=== PATIENT | female | born 1965 | race Caucasian/White ===

== ENCOUNTER 2019-12-05 15:33 | Outpatient (CLI) | payer OTHER, SELFPAY ==
[2019-12-05 16:08] LABS: Add Urine Microscopic? YES; Appearance Urine Cloudy (Clear); Bilirubin Urine Negative (Negative); Blood Urine 2+ (Negative); Color Urine Yellow (Yellow); Glucose Urine UA Negative (Negative); Ketones Urine Negative (Negative); Leukocyte Esterase Ur 3+ LEU/UL (Negative); Mucus Urine Few /lpf; Nitrate Urine Negative (Negative); Protein Urine 1+ mg/dL (Negative); RBC Urine >75 /hpf (0-2); Specific Grav Ur 1.021 (1.001-1.035); Squamous Epithelial Cell Urine Many /hpf (Few); Urobilinogen Urine Negative mg/dL (<2.0); WBC Urine >75 /hpf
== END 2019-12-05 15:34 | disposition home or self-care (01) ==
PROVIDERS: Visit Provider Internal Medicine Hematology & Oncology
DX: C83.00 Small cell B-cell lymphoma, unspecified site (principal)
CPT/HCPCS: 81001; 87086; 87088

== ENCOUNTER 2020-02-12 10:46 | Outpatient (CLI) | payer OTHER, SELFPAY ==
--- NOTE | ~2020-02-12 | CT_ITS ---
EXAMINATION: CT chest w con DATE: 02/12/2020 12:17 INDICATION: Lymphoma TECHNIQUE: Computed tomography (CT) of the chest was performed with 75 cc Omnipaque 350 intravenous c ontrast. Automated exposure control and iterative reconstruction technique were employed. Exam dose: 136.05 mGy-cm total exam DLP. COMPARISON: 07/14/2019 CT chest abdomen pelvis FINDINGS: No thoracic aortic aneurysm or dissection. Normal heart size. No pericardial effusion. No h ilar or mediastinal mass lesion or lymphadenopathy. Normal size and homogeneous enhancement of the thyroid gland. Normal morphology of the adrenal glands. There are moderate emphysematous changes of the lungs. Mild bilateral apical scarring. No pulmonary i nfiltrate or consolidation or suspicious pulmonary mass lesion is evident. There is degenerative spurring of the thoracic spine. No suspicious osteolytic or osteoblastic lesion is noted. IMPRESSION: Emphysema. No lymphadenopathy demonstrated Reviewed, dictated and finalized at [facility]. Reviewed, dictated and finalized at location [facility].
== END 2020-02-12 10:47 | disposition home or self-care (01) ==
LOC: ANHIMG 10:54
PROVIDERS: PCP Internal Medicine Hematology & Oncology; Visit Provider Internal Medicine Hematology & Oncology
DX: C83.00 Small cell B-cell lymphoma, unspecified site (principal); J43.9 Emphysema, unspecified
CPT/HCPCS: 71260; Q9967

== ENCOUNTER 2020-04-30 02:33 | Emergency (ER) | payer OTHER, SELFPAY ==
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
--- NOTE | ~2020-04-30 | XR_ITS ---
XR chest-chest tube insert/pos DATE: 04/30/2020 04:28 INDICATION: Chest tube placement TECHNIQUE: Portable supine AP chest on 04/30/2020 at 0427 hours COMPARISON: 04/30/2020 CT chest abdomen pelvis FINDINGS: There is a right thoracostomy tube, the tip overlying the right apical area. There is reexp ansion of the right lung; no residual pneumothorax is evident. There is extensive subcutaneous emphys shirley of the right chest wall. Heart size is normal. No pleural effusion is evident. No pulmonary consolidation. IMPRESSION: Right thoracostomy tube; resolution right pneumothorax Subcutaneous emphysema right chest wall Reviewed, dictated and finalized at [facility]. Reviewed, dictated and finalized at [facility].
[2020-04-30 02:34] VITALS: BP 124/94; PULSE 104; RESP 22; TEMP 36.5; O2SAT 93
--- NOTE | 2020-04-30 02:42 | ECG_ITS ---
Measurements Intervals [place] Rate: 109 P: 263 HI: 186 QRS: -8 QRSD: 130 T: 99 QT: 405 QTc: 546 Interpretive Statements SINUS OR ECTOPIC ATRIAL TACHYCARDIA WITH FIRST DEGREE AV BLOCK LEFT BUNDLE BRANCH BLOCK BASELINE ARTIFACT- I, II, III, AVR, AVL, AVF, V3, V6 ABNORMAL ECG Electronically Signed On 04-30-2020 7:06:47 CDT by Arsalan Gage D.O.
[2020-04-30 02:56] LABS: Basophils Percent Auto 0.2 % (0.2-1.2); Eosinophils Absolute Auto 0.1 K/mm3 (0-0.3); Eosinophils Percent Auto 0.7 % (0-4.4); Hematocrit 38.3 % (37.0-47.0); Hemoglobin 12.9 g/dL (12.0-15.0); Immature Granulocyte Absolute 0.13 K/mm3 (0.00-0.031); Immature Granulocyte Percent A 0.8 % (0-0.5); Lymphocytes Absolute Auto 10.04 K/mm3 (0.9-3.2); Lymphocytes Percent Auto 61.6 % (18.3-44.2); Mean Corpuscular HGB Conc 33.7 g/dl (32-36); Mean Corpuscular Hemoglobin 31.8 pg (26-34); Mean Corpuscular Volume 94.3 fl (80-100); Monocytes Absolute Auto 0.8 K/mm3 (0.1-0.6); Monocytes Percent Auto 4.7 % (2.6-8.5); Neutrophils Absolute Auto 5.2 K/mm3 (1.3-6.7); Platelet Count Result 438 k/mm3 (150-375); Red Blood Count 4.06 M/mm3 (4.2-5.4); Red Cell Distribution Width 12.4 % (11.5-14.5); White Blood Count 16.3 K/mm3 (4.5-10.0)
[2020-04-30] MEDS: SODIUM CHLORIDE 0.9% IV 1,000 ML 999 ML IV CONT (02:59)
[2020-04-30 03:09] LABS: Partial Thromboplastin Time 23.9 SECONDS (22.3-36.8)
[2020-04-30 03:12] LABS: Alanine Aminotransferase 260 U/L (4-35); Albumin Level 4.5 g/dL (3.5-5.1); Alkaline Phosphatase 118 U/L (38-126); Anion Gap 8 mmol/L (8-16); Aspartate Amino Transferase 433 U/L (14-36); Bilirubin,Total 0.3 mg/dL (0.2-1.3); Blood Urea Nitrogen 17 mg/dL (7-17); Calcium 9.8 mg/dL (8.4-10.2); Carbon Dioxide 30 mmol/L (22-30); Chloride 104 mmol/L (98-107); Estimated CRCL calculation 44 ml/min; Estimated Glomerular Filt Rate 47; Glucose 148 mg/dL (65-105); Lipase 84 U/L (23-300); Potassium 3.7 mmol/L (3.4-5.0); Sodium 142 mmol/L (137-145)
[2020-04-30 03:17] LABS: Ethanol < 10 mg/dL (<10)
[2020-04-30 03:22] LABS: Atypical Lymphocytes Present; Platelet Estimate Adequate (Adequate)
[2020-04-30] MEDS: fentaNYL CITRATE INJ (*CRX) 100 MCG/2 ML VIAL 50 MCG IV PUSH ×3 (03:25→04:48)
[2020-04-30 03:26] LABS: Prothrombin Time 13.2 Seconds (11.1-14.7)
[2020-04-30 03:31] LABS: Troponin I 0.026 ng/mL (0.000-0.034)
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
[2020-04-30] MEDS: MIDAZOLAM HCL (*CRX) 2 MG/2 ML VIAL IV PUSH ×2 (04:07→04:28)
[2020-04-30 04:31] VITALS: BP 165/77; PULSE 99; RESP 27; O2SAT 100
--- NOTE | 2020-04-30 04:41 | PC.NURSE ---
called awilda to trasfer patient to [facility] ED. Awilda is coming with lights and randal
[2020-04-30 04:49] VITALS: BP 136/85; PULSE 94; RESP 25; O2SAT 99
[2020-04-30 05:12] VITALS: BP 141/83; PULSE 95; RESP 24; O2SAT 98
== END 2020-04-30 05:37 | disposition short-term general hospital (02) ==
PROVIDERS: Emergency Provider Emergency Medicine
DX: S27.0XXA Traumatic pneumothorax, initial encounter (principal); S22.41XA Multiple fractures of ribs, right side, initial encounter for closed fracture; S01.512A Laceration without foreign body of oral cavity, initial encounter; I44.7 Left bundle-branch block, unspecified; T79.7XXA Traumatic subcutaneous emphysema, initial encounter; F17.210 Nicotine dependence, cigarettes, uncomplicated; E78.5 Hyperlipidemia, unspecified; I10 Essential (primary) hypertension; E03.9 Hypothyroidism, unspecified; G62.9 Polyneuropathy, unspecified; I44.0 Atrioventricular block, first degree; R00.0 Tachycardia, unspecified; M50.322 Other cervical disc degeneration at C5-C6 level; N28.1 Cyst of kidney, acquired; V47.5XXA Car driver injured in collision with fixed or stationary object in traffic accident, initial encounter
CPT/HCPCS: 32551; 36415; 70450; 71260; 72125; 74177; 80053; 80307; 82565; 83690; 84484; 85025; 85610; 85730; 93005; 96361; 96374; 96375; 96376; 99291; C1729; J2250; J3010; J7030; Q9967

== ENCOUNTER 2021-02-20 12:39 | Emergency (ER) | payer OTHER, SELFPAY ==
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
[2021-02-20 12:58] VITALS: BP 135/90; PULSE 100; RESP 18; TEMP 37.4; O2SAT 98
== END 2021-02-20 14:21 | disposition home or self-care (01) ==
PROVIDERS: Emergency Provider Nurse Practitioner
DX: M25.512 Pain in left shoulder (principal); S13.9XXA Sprain of joints and ligaments of unspecified parts of neck, initial encounter; V49.40XA Driver injured in collision with unspecified motor vehicles in traffic accident, initial encounter; E78.5 Hyperlipidemia, unspecified; I10 Essential (primary) hypertension; E03.9 Hypothyroidism, unspecified; G62.9 Polyneuropathy, unspecified
CPT/HCPCS: 73000; 99213; G0463

== ENCOUNTER 2021-05-02 13:33 | Emergency (ER) | payer OTHER, SELFPAY ==
[2021-05-02 13:37] VITALS: BP 147/91; PULSE 108; RESP 20; TEMP 36.3; O2SAT 98
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
--- NOTE | 2021-05-02 13:48 | ECG_ITS ---
Measurements Intervals [place] Rate: 96 P: 75 CT: 165 QRS: -31 QRSD: 118 T: 106 QT: 370 QTc: 470 Interpretive Statements SINUS RHYTHM POSSIBLE LEFT ATRIAL ENLARGEMENT LEFT AXIS DEVIATION LEFT BUNDLE BRANCH BLOCK ANTEROSEPTAL INFARCT OR DUE TO LBBB BASELINE ARTIFACT- V4-V6 ABNORMAL ECG Electronically Signed On 05-02-2021 14:25:14 CDT by Arsalan Gage D.O.
[2021-05-02] MEDS: ALBUTEROL SULFATE NEB 2.5 MG/0.5 ML INH 5 MG INHALATION (14:05)
[2021-05-02 14:07] VITALS: PULSE 98; RESP 20; O2SAT 98
[2021-05-02 14:35] VITALS: PULSE 105; RESP 20; O2SAT 97
== END 2021-05-02 14:50 | disposition short-term general hospital (02) ==
PROVIDERS: Emergency Provider Emergency Medicine; PCP Pediatrics
DX: R06.02 Shortness of breath (principal); F19.90 Other psychoactive substance use, unspecified, uncomplicated; Z20.822 Contact with and (suspected) exposure to COVID-19; F17.290 Nicotine dependence, other tobacco product, uncomplicated; E78.5 Hyperlipidemia, unspecified; I10 Essential (primary) hypertension; E03.9 Hypothyroidism, unspecified; G62.9 Polyneuropathy, unspecified; C85.90 Non-Hodgkin lymphoma, unspecified, unspecified site
CPT/HCPCS: 87426; 93005; 94640; 99213; C9803; G0463

== ENCOUNTER 2021-05-02 19:11 | Emergency (ER) | payer OTHER, SELFPAY ==
--- NOTE | ~2021-05-02 | XR_ITS ---
XR chest 2V DATE: 05/02/2021 20:30 INDICATION: Shortness of breath, increasing. Chest tightness, chest pain radiating to the back. COPD. Cancer. TECHNIQUE: PA and lateral views COMPARISON: 04/30/2020 portable AP chest FINDINGS: Bilateral hyperinflation and relative flattening the diaphragm, consistent with COPD. No pu lmonary infiltrate or consolidation, pleural effusion or pulmonary vascular congestion or pneumothora x. Heart size is within normal range. No hilar or mediastinal enlargement. IMPRESSION: Bilateral hyperinflation suggesting COPD No active cardiopulmonary disease Reviewed, dictated and finalized at location A.
[2021-05-02 19:37] VITALS: BP 143/103; PULSE 108; RESP 20; TEMP 37.1; O2SAT 97
--- NOTE | 2021-05-02 20:20 | ECG_ITS ---
Measurements Intervals [place] Rate: 91 P: 15 NE: 141 QRS: -52 QRSD: 130 T: 115 QT: 402 QTc: 496 Interpretive Statements SINUS RHYTHM LEFT AXIS DEVIATION LEFT BUNDLE BRANCH BLOCK BASELINE ARTIFACT- I, II, III, AVR, AVF, V2-V6 ABNORMAL ECG Electronically Signed On 05-03-2021 6:12:07 CDT by Arsalan Gage D.O.
--- NOTE | 2021-05-02 20:49 | ED.SOB ---
HPI - SOB/Dyspnea General Chief Complaint: Shortness of Breath/Dyspnea Stated Complaint: sob since sunday, seen at [facility] Time Seen by Provider: 05/02/21 20:32 Source: patient, RN notes reviewed and old records reviewed Mode of arrival: ambulatory Limitations: no limitations History of Present Illness HPI Narrative: This is a 55 year old female with history leukemia ,COPD, smoking , pneumothorax who presents for evaluation of shortness of breath. She started having sob on Sunday. Initially she was short of breath only with exertion but she now feels sob at rest. She is also having intermittent back and chest tightness with nausea. She has chronic cough with phlegm. She denies fever or chills. she denies leg swelling but she reports leg pain and fatigue. She was evaluated at [facility] and she was given neb treatment without relief. Related Data Home Medications Medication Instructions Recorded Confirmed No Home Medications 05/02/21 05/02/21 Allergies Allergy/AdvReac Type Severity Reaction Status Date / Time codeine Allergy Mild Nausea and Verified 05/02/21 13:35 Vomiting Review of Systems Review of Systems: All systems reviewed & are unremarkable except as noted in HPI and below PMFSH Past Medical History Medical History Anxiety Bulging of cervical intervertebral disc DDD (degenerative disc disease) Depression HLD (hyperlipidemia) Hypertension Hypothyroid Peripheral neuropathy Pneumonia Surgical History Surgical History H/O section x2 S/P breast biopsy Social History Social History (System 09/04/19 @ 12:57 by Stacey Celaya) Smoking status: Current every day smoker Tobacco type: cigarettes and e-cigarettes/vaping Substance use: former Substance use type: crack/cocaine Exam Const: General: no acute distress and alert Orientation/consciousness: patient oriented x3 Eyes: EOM: EOMs intact bilaterally Resp: Effort & Inspection: normal respiratory effort and no retractions Auscultation: clear to auscultation bilaterally and diminished lung sounds Cardio: Rate: regular rate Rhythm: regular rhythm Heart sounds: no murmurs GI: GI Palp: Yes Soft to palpation, No Tenderness to palpation present (GI) and No Guarding due to palpation present (GI) Auscultation: normal bowel sounds Skin: General skin exam: normal color Rashes: no rashes Neuro: General: patient oriented x3, moves all extremities and CN's II-XI intact bilaterally Psych: Mental Status: mental status grossly normal Affect: normal affect Course Reevaluation(s) Reevaluation #1: Patient left AMA. Prior to leaving I discussed with patient lab and pending orders of lasix, steroids and CT lungs. SHe still refuses and signing AMA Date: 05/02/21 Time: 22:00 Vital Signs Vital signs: Vital Signs Temperature 98.8 F 05/02/21 19:37 Pulse Rate 108 H 05/02/21 19:37 Respiratory Rate 20 05/02/21 19:37 Blood Pressure 143/103 H 05/02/21 19:37 Pulse Oximetry 97 05/02/21 19:37 Temperature 98.8 F 05/02/21 19:37 Pulse Rate 88 05/02/21 21:37 Respiratory Rate 22 H 05/02/21 21:37 Blood Pressure 141/99 H 05/02/21 21:37 Pulse Oximetry 98 05/02/21 21:37 MDM - SOB/Dyspnea Lab Data Attestation: I reviewed the patient's lab results. Result diagrams: 05/02/21 21:15 05/02/21 21:15 Labs: Lab Results 05/02/21 05/02/21 05/02/21 Range/Units 20:51 21:13 21:15 WBC 21.1 H (4.5-10.0) K/mm3 RBC 4.33 (4.2-5.4) M/mm3 Hgb 13.8 (12.0-15.0) g/dL Hct 40.7 (37.0-47.0) % MCV 94.0 (80-100) fl MCH 31.9 (26-34) pg MCHC 33.9 (32-36) g/dl RDW 11.9 (11.5-14.5) % Plt Count 385 H (150-375) k/mm3 MPV 8.7 (7.4-10.4) fl Immature Gran % (Auto) 0.2 (0-0.5) % Neut % (Auto) 29.1 L (45.5-73.1)
[2021-05-02 21:00] LABS: Alveolar/Arterial O2 Gradient 41.3 mmHg; Base Excess ABG 1.3 mEq/l (+/-2.0); Carboxyhemoglobin 2.1 % THb (0-2.0); Fractional Inspired Oxygen 21 %; HCO3 ABG 23.8 mEq/l (22.0-26.0); Methemoglobin ABG 0.3 %THb (0-1.5); Modified Allen's Test Pass; Oxygen Content ABG 17.8 %vol (16.0-22.0); Oxygen Saturation ABG 95.4 % (95.0-100.0); Oxyhemoglobin 88.3 % THb (90.0-100.0); PO2 ABG 70.1 mmHg (80.0-100.0); PO2 FiO2 Ratio Arterial Blood 3.34 %; Reduced Hemoglobin 9.3 %THb (0-5.0); Site Drawn RIGHT RADIAL; Total Hemoglobin 14.3 g/dL (12.0-18.0)
[2021-05-02 21:01] LABS: Device ROOM AIR
[2021-05-02] MEDS: predniSONE 20 MG TABLET 60 MG PO (21:03)
[2021-05-02 21:24] LABS: Basophils Absolute Auto 0.1 K/mm3 (0.0-0.1); Basophils Percent Auto 0.3 % (0.2-1.2); Eosinophils Absolute Auto 0.2 K/mm3 (0-0.3); Eosinophils Percent Auto 1.1 % (0-4.4); Hematocrit 40.7 % (37.0-47.0); Hemoglobin 13.8 g/dL (12.0-15.0); Immature Granulocyte Absolute 0.05 K/mm3 (0.00-0.031); Immature Granulocyte Percent A 0.2 % (0-0.5); Lymphocytes Absolute Auto 13.92 K/mm3 (0.9-3.2); Lymphocytes Percent Auto 65.8 % (18.3-44.2); Mean Corpuscular HGB Conc 33.9 g/dl (32-36); Mean Corpuscular Hemoglobin 31.9 pg (26-34); Mean Platelet Volume 8.7 fl (7.4-10.4); Monocytes Absolute Auto 0.8 K/mm3 (0.1-0.6); Monocytes Percent Auto 3.5 % (2.6-8.5); Neutrophils Absolute Auto 6.1 K/mm3 (1.3-6.7); Neutrophils Percent Auto 29.1 % (45.5-73.1); Platelet Count Result 385 k/mm3 (150-375); Red Blood Count 4.33 M/mm3 (4.2-5.4); Red Cell Distribution Width 11.9 % (11.5-14.5); White Blood Count 21.1 K/mm3 (4.5-10.0)
[2021-05-02 21:36] LABS: INR 0.9; Prothrombin Time 11.9 Seconds (11.1-14.7)
[2021-05-02 21:37] VITALS: BP 141/99; PULSE 88; RESP 22; O2SAT 98
[2021-05-02 21:37] LABS: Partial Thromboplastin Time 23.5 SECONDS (22.3-36.8)
[2021-05-02 21:38] LABS: Smudge Cells FEW
[2021-05-02 21:39] LABS: Atypical Lymphocytes Present; Platelet Estimate Increased (Adequate)
[2021-05-02 21:40] LABS: Anion Gap 9 mmol/L (8-16); Blood Urea Nitrogen 10 mg/dL (7-17); Calcium 10.6 mg/dL (8.4-10.2); Carbon Dioxide 25 mmol/L (22-30); Chloride 106 mmol/L (98-107); Estimated CRCL calculation 60 ml/min; Estimated Glomerular Filt Rate > 60; Glucose 121 mg/dL (65-110); Potassium 4.1 mmol/L (3.4-5.0); Sodium 140 mmol/L (137-145)
[2021-05-02 21:46] LABS: Barbiturate Screen Urine Negative (Negative); Benzodiazepines Screen Urine Negative (Negative)
[2021-05-02 21:50] LABS: Cannabinoid Screen Urine Positive (Negative); Cocaine Screen Urine Negative (Negative); Methadone Screen Urine Negative (Negative); Opiate Screen Urine Negative (Negative); Phencyclidine Screen Urine Negative (Negative)
[2021-05-02 21:52] LABS: D Dimer 0.27 ug/mL (<0.48)
[2021-05-02 21:53] LABS: NT Pro B Type Natriuretic Pept 2040 pg/mL (5-100); Troponin I 0.031 ng/mL (0.000-0.034)
--- NOTE | 2021-05-02 22:13 | PC.NURSE ---
Pt refuses medication and demands to leave at this time. States i have not ate all day, I just want to go, take this IV out of me now . ERP and Charge nurse aware . IV removed. AMA paper signed.
[2021-05-02 22:22] LABS: Amphetamine Screen Urine Positive (Negative)
== END 2021-05-02 22:15 | disposition left against medical advice (07) ==
LOC: ANHED 20:47
PROVIDERS: Emergency Provider General Practice
DX: J44.1 Chronic obstructive pulmonary disease with (acute) exacerbation (principal); E03.9 Hypothyroidism, unspecified; E78.5 Hyperlipidemia, unspecified; G62.9 Polyneuropathy, unspecified; Z85.6 Personal history of leukemia; F17.210 Nicotine dependence, cigarettes, uncomplicated; F17.290 Nicotine dependence, other tobacco product, uncomplicated; I44.7 Left bundle-branch block, unspecified
CPT/HCPCS: 36415; 36600; 71046; 80048; 80307; 82375; 82805; 83050; 83880; 84484; 85025; 85380; 85610; 85730; 87426; 93005; 94640; 99284; C9803; J7512

== ENCOUNTER 2021-06-02 13:54 | Emergency (ER) | payer OTHER, SELFPAY ==
--- NOTE | ~2021-06-02 | XR_ITS ---
XR chest 2V 06/02/2021 14:40 Indication: Cough and shortness of breath Procedure: 2 view chest Comparison: Comparison to multiple prior studies sequentially, with oldest reviewed study dated 09/15. Findings: Borderline heart size. There are infiltrates of the lower lungs and left midlung. Small ple ural effusions. The lungs are hyperinflated which is consistent with, but not diagnostic of chronic o bstructive pulmonary disease. Impression: 1: Bibasilar infiltrates which may represent atelectasis or less likely pneumonia. 2: Small pleural effusions. Reviewed, dictated and finalized at location B. NICAL PRODUCER Impression: 1: Bibasilar infiltrates which may represent atelectasis or less likely pneumon ia. 2: Small pleural effusions.
[2021-06-02 13:58] VITALS: BP 138/94; PULSE 123; RESP 26; TEMP 37.7; O2SAT 95
--- NOTE | 2021-06-02 14:13 | ED.URI ---
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 She has a shorter half week recurrent history of shortness of breath, and nonproductive cough.Patient states seen in the ED last month for for similar symptoms WBC remarkable for 21,000 with right shift, BNP 1999 and treated for COPD exacerbation with inhaler, steroid[ no antibiotics] after noncontributory Xray. She has a recent history of stable CLL, LBBB, and a traumatic pneumothorax a year ago. No loss of taste/smell, CP, vomiting/diarrhea, rash;no fever, precordial chest pain, calf pain/edema, sputum changes. Chest x-ray shows new bibasilar changes consistent with atelectasis [or infiltrates ]; she declines today hospital referral - discussed also plan to call oncologist, as she is due for her biannual exam. Related Data Allergies Allergy/AdvReac Type Severity Reaction Status Date / Time codeine Allergy Mild Nausea and Verified 06/02/21 14:08 Vomiting Review of Systems Review of Systems: General/Constitutional: No weight loss,fever Eyes: N0: Redness,discharge Ears/Nose/Throat: No: Epistaxis,ear discharge Respiratory: Denies: Hemoptysis Gastrointestinal: No Vomiting, Bleeding-rectal Skin: No Lumps, eruption Neurologic: No Focal Weakness,Sz Hematologic: Denies: Petechiae/Purpura Psychiatric: No: Suicida ideationl All Other Systems: Reviewed and Negative PMFSH Past Medical History Medical History Anxiety Bulging of cervical intervertebral disc DDD (degenerative disc disease) Depression HLD (hyperlipidemia) Hypertension Hypothyroid Peripheral neuropathy Pneumonia Surgical History Surgical History H/O section x2 S/P breast biopsy Social History Social History (System 09/04/19 @ 12:57 by Stacey Celaya) Smoking status: Current every day smoker Tobacco type: cigarettes and e-cigarettes/vaping Substance use: former Substance use type: crack/cocaine Comments At time of signature, agree with nursing past medical, surgical, social and family history. There is no relevant family history pertinent to the presenting complaint Exam Narrative: General Appearance: Well appearing, Well nourished EYE: PERRLA, Conjunctiva clear Ears: Auditory canal normal, TM normal Nose: Rhinorrhea, Mucousal erythema Mouth/Throat: MM moist, Uvula midline, Pharyngeal erythema Neck: Supple, No adenopathy Respiratory: No respiratory distress, BS equal diffuse decreased BS gio bases, with increased AP diameter , Cardiovascular: Tacky RRR, No JVD Musculoskeletal: Non tender, Normal strength Skin: Warm, Dry Neurological: A&O x3, CN II-XII intact Psychiatric: Normal mood, Normal affect Course Course Emergency Course: Films visualized, interpreted by radiologist, agree, ABnormal see report Called and discussed treatment plan with oncologist, who prefers Levaquin Vital Signs Vital signs: Vital Signs Temperature 99.9 F H 06/02/21 13:58 Pulse Rate 123 H 06/02/21 13:58 Respiratory Rate 26 H 06/02/21 13:58 Blood Pressure 138/94 H 06/02/21 13:58 Pulse Oximetry 95 06/02/21 13:58 Temperature 99.9 F H 06/02/21 13:58 Pulse Rate 123 H 06/02/21 13:58 Respiratory Rate 26 H 06/02/21 13:58 Blood Pressure 138/94 H 06/02/21 13:58 Pulse Oximetry 95 06/02/21 13:58 MDM - URI/Sore Throat Lab Data Labs: Lab Results 06/02/21 06/02/21 Range/Units 14:05 15:46 SARS-CoV-2 RNA (RT-PCR) Pending POC SARS CoV-2 Ag Negative (Negative) Discharge Plan Discharge Clinical Impression: Abnormal chest x-ray, Asthma exacerba
[2021-06-02] MEDS: IPRATROPIUM BR 0.02% INH SOLN 0.5 MG/2.5 ML VIAL INHALATION (15:10)
[2021-06-02] MEDS: ALBUTEROL SULFATE NEB 2.5 MG/0.5 ML INH INHALATION (15:18)
[2021-06-03 17:54] LABS: SARS-CoV-2 RNA PCR Negative
== END 2021-06-02 15:52 | disposition home or self-care (01) ==
PROVIDERS: Emergency Provider Emergency Medicine
DX: J44.1 Chronic obstructive pulmonary disease with (acute) exacerbation (principal); R91.8 Other nonspecific abnormal finding of lung field; E78.5 Hyperlipidemia, unspecified; I10 Essential (primary) hypertension; E03.9 Hypothyroidism, unspecified; F17.200 Nicotine dependence, unspecified, uncomplicated; Z20.822 Contact with and (suspected) exposure to COVID-19
CPT/HCPCS: 71046; 87426; 99213; C9803; G0463; U0003; U0005

== ENCOUNTER 2021-07-10 17:18 | Emergency (ER) | payer OTHER, SELFPAY ==
[2021-07-10 17:25] VITALS: BP 110/77; PULSE 110; RESP 20; TEMP 36.4; O2SAT 99
--- NOTE | 2021-07-10 19:51 | PC.NURSE ---
no answer when called
== END 2021-07-10 19:53 | disposition left against medical advice (07) ==
LOC: ANHED 20:02
DX: J02.9 Acute pharyngitis, unspecified (principal)
CPT/HCPCS: 99199

== ENCOUNTER 2021-08-09 10:44 | Inpatient (IN) | payer OTHER, SELFPAY ==
[2021-08-09] VITALS (10 sets, daily range): BP systolic 103–126; BP diastolic 68–84; PULSE 109–123; RESP 14–28; TEMP 36.4–36.7; O2SAT 94–98; BMI 26.4
--- NOTE | 2021-08-09 | ECHO_ITS ---
Patient Info Name: Erik Brenner Age: 56 years : 1965 Gender: Female Ht: 61 in Wt: 140 lbs BSA: 1.67 m2 HR: 240 bpm BP: 107 / 72 mmHg Heart Rhythm: Tachycardia Technical Quality: Fair Exam Date: 08/09/2021 4:33 PM Exam Location: [facility] Patient Status: Inpatient Admit Date: 08/09/2021 Staff Ordering Physician: Jazzy Freire Tree Girdler: Radha Bailey RDCS Attending Provider: Martha Izaguirre MD Referring Physician: Mouna GOMEZ; Exam Type: CA echo dop color flow w con Study Info Indications - chf Complete two-dimensional, color flow and Doppler transthoracic echocardiogram is performed. Summary 1. Complete two-dimensional, color flow and Doppler transthoracic echocardiogram is performed. 2. Left ventricular chamber dimension is severely enlarged. 3. Left ventricular systolic function is severely reduced, estimated at <15%. 4. There is no increased left ventricular wall thickness. 5. Left ventricular septal wall motion is abnormal with septal motion related to bundle branch block. 6. The left ventricular diastolic function is abnormal. 7. The inferior wall, anteroseptal wall, apical lateral wall, and apical cap are akinetic. 8. The mid anterior wall, mid anterolateral wall, and mid inferolateral wall are hypokinetic. 9. The inferoseptal wall is dyskinetic. 10. Right ventricular chamber dimension is mildly enlarged. 11. Right ventricular systolic function is reduced. 12. Left atrial chamber dimension is mildly enlarged. 13. Right atrial chamber dimension is mildly enlarged. 14. There is mild aortic valve regurgitation. 15. There is moderate mitral valve regurgitation. 16. There is moderate tricuspid valve regurgitation. 17. Moderate pulmonary hypertension, estimated pulmonary arterial systolic pressure is 49 mmHg. 18. There is mild pulmonic regurgitation. 19. There is small pericardial effusion. Left Ventricle Left ventricular chamber dimension is severely enlarged. Left ventricular systolic function is severely reduced, estimated at <15%. There is no increased left ventricular wall thickness. Left ventricular septal wall motion is abnormal with septal motion related to bundle branch block. The left ventricular diastolic function is abnormal. The inferior wall, anteroseptal wall, apical lateral wall, and apical cap are akinetic. The mid anterior wall, mid anterolateral wall, and mid inferolateral wall are hypokinetic. The inferoseptal wall is dyskinetic. All other ho appear normal. Right Ventricle Right ventricular chamber dimension is mildly enlarged. Right ventricular systolic function is reduced. Left Atria Left atrial chamber dimension is mildly enlarged. Right Atria Right atrial chamber dimension is mildly enlarged. Atrial Septum Intact interatrial septum visualized by color flow imaging. Aortic Valve The aortic valve is trileaflet. There is mild aortic valve sclerosis. There is no aortic valve stenosis. There is mild aortic valve regurgitation. Pulmonic Valve The pulmonic valve is normal. There is no pulmonic valve stenosis. There is mild pulmonic regurgitation. Mitral Valve The mitral valve has normal leaflets. There is no mitral valve stenosis. There is moderate mitral valve regurgitation. Tricuspid Valve The tricuspid valve leaflets are normal. There is no significant tricuspid valve stenosis. There is moderate tricuspid valve regurgitation. Moderate pulmonary hypertension
--- NOTE | ~2021-08-09 | CT_ITS ---
EXAMINATION: CTA chest PE protocol DATE: 08/09/2021 12:03 INDICATION: Soreness of breath. Elevated d-dimer. TECHNIQUE: Computed tomography (CT) pulmonary angiogram of the chest was performed with 100 mL Omnipa que-350 intravenous contrast. Additional 3D reconstructions utilizing coronal maximum intensity proje ction (MIP) were performed. Automated exposure control and iterative reconstruction technique were em ployed. The dose-length product was 219.49 mGy-cm. COMPARISON: 04/30/2020 FINDINGS: Excellent contrast opacification of the pulmonary arteries. There is mild streak artifact from dense contrast in the superior vena cava and right atrium. Minimal respiratory motion which does not signif icantly limit evaluation. No pulmonary embolism. Mild to moderate emphysema. Subtle groundglass opaci ties and smooth septal line thickening with lower lung predominance consistent with mild pulmonary ed shirley. Mild lingular atelectasis. No pleural effusion or pneumothorax. Cardiomegaly. No pericardial eff usion. Mild mediastinal and right hilar lymphadenopathy which is likely reactive. Thoracic aorta is n ormal in caliber. Mild to moderate thoracic and lower cervical spondylosis. IMPRESSION: 1. Likely congestive heart failure with cardiomegaly and mild basilar predominant pulmonary edema. 2. Mild to moderate emphysema. Reviewed, dictated and finalized at location A. OLITH OPERATOR IMPRESSION: 1. Likely congestive heart failure with cardiomegaly and mild basilar predomina nt pulmonary edema. 2. Mild to moderate emphysema.
--- NOTE | ~2021-08-09 | XR_ITS ---
EXAMINATION: XR chest 2V DATE: 08/09/2021 11:57 INDICATION: Cough and chest pain TECHNIQUE: PA and lateral views of the chest were obtained. COMPARISON: Chest radiograph dated 06/02/2021 FINDINGS: Mild increased interstitial pattern in the bilateral lower lung zones consistent with mild pulmonary edema. No pleural effusion or pneumothorax. Cardiomegaly. Mild thoracic levocurvature with moderate s pondylosis. IMPRESSION: 1. Mild pulmonary edema in the lower lung zones 2. Cardiomegaly. Reviewed, dictated and finalized at location A. LE GIRL
--- NOTE | ~2021-08-09 | US_ITS ---
EXAMINATION: US abdomen limited DATE: 08/10/2021 08:01 INDICATION: Elevated liver function tests TECHNIQUE: Multiple grayscale and Doppler ultrasound images of the abdomen were obtained. COMPARISON: 04/30/2020 FINDINGS: The pancreatic head and body are normal in appearance. The visualized proximal inferior vena cava is normal. The pancreatic tail is not visualized. Liver has normal echogenicity and contour, with a smoo th surface. No liver lesion identified. No intrahepatic biliary duct dilation suspected. Portal venou s flow was seen in the hepatopetal, normal direction and has normal Doppler waveform. The gallbladder is normal in appearance. There is no cholelithiasis. The common bile duct measures 3-4 mm, which is normal. Sonographic Cornell sign was reported as negative by the pallet repairer. IMPRESSION: 1. Normal right upper quadrant ultrasound. Reviewed, dictated and finalized at location A. [facility]
--- NOTE | 2021-08-09 10:49 | ECG_ITS ---
Measurements Intervals [place] Rate: 123 P: 57 [place]: 156 QRS: -11 QRSD: 142 T: 70 QT: 359 QTc: 515 Interpretive Statements SINUS TACHYCARDIA LEFT BUNDLE BRANCH BLOCK BASELINE ARTIFACT- I, II, III, AVR, AVL, AVF, V3-V6 ABNORMAL ECG Electronically Signed On 08-09-2021 12:19:23 MAINFRAME CONSULTANT by Arsalan Gage D.O.
--- NOTE | 2021-08-09 11:05 | ED.SOB ---
HPI - SOB/Dyspnea General Chief Complaint: Shortness of Breath/Dyspnea Stated Complaint: sob Time Seen by Provider: 08/09/21 10:50 Source: patient Mode of arrival: ambulatory Limitations: no limitations History of Present Illness HPI Narrative: Patient is a 56-year-old female complain of shortness of breath that is been ongoing for 1 month, was sent here by her floral clerk for possible acute CHF . Patient denies any chest pain, abdominal pain, abdominal distention, nausea, vomiting, diaphoresis, fever, chills or increased lower extremity swelling. Related Data Allergies Allergy/AdvReac Type Severity Reaction Status Date / Time codeine Allergy Mild Nausea and Verified 08/09/21 10:55 Vomiting Review of Systems Review of Systems: All systems reviewed & are unremarkable except as noted in HPI and below Constitutional: Constitutional: Denies body ache(s), Denies chills, Denies excessive sweating, Denies fatigue, Denies fever(s), Denies headache(s), Denies lethargy, Denies malaise, Denies weakness and Denies weight loss Eyes: Eyes: Denies blurry vision, Denies change in vision and Denies loss of vision ENT: Denies dizziness, Denies ear discharge, Denies headache(s), Denies lip swelling, Denies epistaxis, Denies nasal congestion, Denies neck pain, Denies throat swelling and Denies tongue swelling Cardiovascular: Cardiovascular: Denies chest pain, Denies chest pain at rest, Denies chest pain with activity, Denies diaphoresis, Denies rapid heart rate, Denies edema, Denies irregular heart rhythm, Denies lightheadedness and Denies palpitations Respiratory: Respiratory: Denies chest congestion, Denies cough and Denies hemoptysis Gastrointestinal: Gastrointestinal: Denies abdominal pain, Denies melena, Denies hematochezia, Denies diarrhea, Denies nausea, Denies vomiting and Denies hematemesis Musculoskeletal: Musculoskeletal: Denies abnormal gait, Denies deformity, Denies joint swelling, Denies limited range of motion, Denies neck pain and Denies numbness Neurologic: Denies Abnormal speech present, Denies abnormal gait, Denies confusion, Denies dizziness, Denies headache(s), Denies focal weakness, Denies loss of vision, Denies numbness, Denies Other visual disturbances, Denies Sensory deficit (Neuro) and Denies weakness Psychiatric: Psychiatric: Denies confusion, Denies depression, Denies auditory hallucinations, Denies homicidal ideation and Denies suicidal ideation Endocrine: Endocrine: Denies cold intolerance, Denies excessive sweating, Denies fatigue, Denies heat intolerance and Denies palpitations Hematologic/Lymphatic: Hematologic/Lymphatic: Denies easy bleeding and Denies easy bruising Allergic/Immunologic: Allergic/Immunologic: Denies lip swelling, Denies throat swelling and Denies tongue swelling PMFSH Past Medical History Medical History Anxiety Bulging of cervical intervertebral disc DDD (degenerative disc disease) Depression HLD (hyperlipidemia) Hypertension Hypothyroid Peripheral neuropathy Pneumonia Surgical History Surgical History H/O section x2 S/P breast biopsy Social History Social History Smoking packs per day: 1 Smoking cigarettes per day: 20.0 Years smoked: 40 Smoking pack-years: 40.00 Smoking status: Current every day smoker Tobacco type: cigarettes and e-cigarettes/vaping Substance use: former Substance use type: crack/cocaine Exam Const: General: cooperative, healthy appearing, comfortable, no acute distress, well developed, alert and awake; No confusion Orientation/consciousness: oriented to person, oriented to place, oriented to time, patient oriented x3 and No confusion Limitations: no limitations HENMT: Head: normal to inspection, normocephalic and atraumatic Ears: hearing grossly normal bilatera
[2021-08-09] MEDS: IPRATROPIUM BR 0.02% INH SOLN 0.5 MG/2.5 ML VIAL INHALATION (11:20)
[2021-08-09] MEDS: ALBUTEROL SULFATE NEB 2.5 MG/0.5 ML INH 5 MG INHALATION (11:20)
[2021-08-09 11:24] LABS: Alveolar/Arterial O2 Gradient 51.7 mmHg; Carboxyhemoglobin 3.1 % THb (0-2.0); Fractional Inspired Oxygen 21 %; HCO3 ABG 22.5 mEq/l (22.0-26.0); Methemoglobin ABG 0.1 %THb (0-1.5); Oxygen Content ABG 17.1 %vol (16.0-22.0); Oxygen Saturation ABG 93.5 % (95.0-100.0); PCO2 ABG 30.5 mmHg (35.0-45.0); PO2 ABG 61.5 mmHg (80.0-100.0); PO2 FiO2 Ratio Arterial Blood 2.93 %; Reduced Hemoglobin 7.8 %THb (0-5.0); Total Hemoglobin 13.7 g/dL (12.0-18.0); pH ABG 7.485 (7.350-7.450)
[2021-08-09 11:25] LABS: Device ROOM AIR; Modified Allen's Test Pass; Site Drawn RIGHT RADIAL
[2021-08-09 11:26] LABS: Alanine Aminotransferase 139 U/L (4-35); Albumin Level 4.2 g/dL (3.5-5.1); Alkaline Phosphatase 117 U/L (38-126); Anion Gap 9 mmol/L (8-16); Aspartate Amino Transferase 155 U/L (14-36); Blood Urea Nitrogen 11 mg/dL (7-17); Calcium 9.9 mg/dL (8.4-10.2); Carbon Dioxide 21 mmol/L (22-30); Chloride 100 mmol/L (98-107); D Dimer 0.94 ug/mL (<0.48); Estimated CRCL calculation 59 ml/min; Estimated Glomerular Filt Rate > 60; Glucose 185 mg/dL (65-110); Potassium 3.8 mmol/L (3.4-5.0); Sodium 130 mmol/L (137-145)
[2021-08-09 11:29] LABS: INR 1.1
[2021-08-09 11:32] LABS: NT Pro B Type Natriuretic Pept 4900 pg/mL (5-100)
[2021-08-09 11:44] LABS: Troponin I 0.026 ng/mL (0.000-0.034)
[2021-08-09] MEDS: FUROSEMIDE INJ 40 MG/4 ML VIAL 20 MG IV PUSH ×2 (12:59→16:42)
[2021-08-09 14:53] LABS: Troponin I 0.023 ng/mL (0.000-0.034)
--- NOTE | 2021-08-09 15:00 | PM.IMHP ---
H&P: HPI History of Present Illness Date/Time: 08/09/21 15:00 Chief Complaint: Shortness of breath. Narrative: This is a pleasant 56-year-old female smoker with chronic obstructive pulmonary disease and small lymphocytic lymphoma who presented to the emergency department for evaluation of shortness of breath. Prior to May 2021, she was able to complete activities of daily living without issue however sometime later in the month she developed pneumonia and she has essentially felt short of breath since that time. It has gotten progressively worse over the past 1 week with multiple other symptoms to include intermittent lower extremity edema, orthopnea, paroxysmal nocturnal dyspnea, cough occasionally productive of clear phlegm, palpitations, and mid chest tightness. She has not had a primary care provider for sometime due to lapse of insurance though she still follows with Dr. Chauhan who treated her lymphoma 2 years ago; she spoke with him regarding her symptoms and he referred her to Dr. Patton who saw her in office for the first time today. Given her history, exam findings, and lab/imaging over the past 1 month he was concerned for congestive heart failure and sent her to the ER. EKG showed sinus tachycardia with a left bundle branch block which has been present on EKG since April 2020. Chest CTA showed findings consistent with congestive heart failure with cardiomegaly and pulmonary edema as well as mild to moderate emphysema. She has no known history of cardiac disease. She does have a history of substance abuse including cocaine though she reports being clean for approximately 3 years. Urine drug screen in May 2021 was positive for amphetamines and cannabinoids. She denies significant alcohol use. Review of Systems Review of Systems: Twelve systems were reviewed. She reports subjective fever and chills for the past 2 days. No sweats. Reports mild hoarseness and sore throat. No sinus congestion. No sick contacts or known exposure to those positive for COVID 19. She is not vaccinated against COVID. She has not had exertional chest pain and cannot recall a time when she did have chest pain. No pleuritic pain. She denies syncope and near-syncope. No nausea, vomiting, or diarrhea. Except as documented, all other systems reviewed and are negative. [facility] Past Medical History Medical History (Updated 08/09/21 @ 20:20 by Rayna Mckenzie PA-C) Anxiety Degenerative disc disease Depression Hyperlipidemia No longer on medication Hypertension No longer on medication Hypothyroidism No longer on medication Left bundle branch block On EKG tracings as far back as April 2020. Peripheral neuropathy Small lymphocytic lymphoma Tobacco abuse Surgical History Surgical History (Updated 08/09/21 @ 20:12 by Rayna Mckenzie PA-C) History of 2 sections History of breast biopsy History of endometrial ablation Family History Family History (Updated 08/09/21 @ 20:13 by Rayna Mckenzie PA-C) Mother Congestive heart failure Sibling Chronic obstructive pulmonary disease Social History Social History (Updated 08/09/21 @ 20:14 by Rayna Mckenzie PA-C) Social History: Surrogate decision maker: Ender Robb or rashmi Reyes. Code status: Full code. Smoking packs per day: 1 Smoking cigarettes per day: 20.0 Years smoked: 40 Smoking pack-years: 40.00 Smoking status: Current every day smoker Tobacco type: cigarettes Additional smoking assessment comments: Trying to cut back, now but half a pack a day Alcohol intake: current Alcohol use details: Socially and in moderation Substance use: former Substance use type: marijuana, crack/cocaine and amphetamines Additional living arrangements comments: The patient lives in [place] with her 2 sons. Additional occupation/education comments: Currently unemployed. Meds Home Medications and Allergies Home Medications Medication In
--- NOTE | 2021-08-09 15:01 | PM.CNCAR ---
Assessment and Plan Assessment and plan (1) Acute CHF: Qualifiers: Heart failure type: unspecified Qualified Code(s): I50.9 - Heart failure, unspecified Code(s): I50.9 - Heart failure, unspecified Status: Acute Assessment and Plan: She enters the hospital with a chief complaint of shortness of breath. Also experiencing orthopnea, lower extremity edema. The initial workup in the emergency department showed pulmonary edema, cardiomegaly on chest x-ray, and elevated BNP consistent with congestive heart failure. She was given 1 dose of IV furosemide 20 mg. She did not notice any improvement in her breathing after receiving this. She does not appear to be markedly volume overloaded on exam. Can continue gentle diuresis with 20 mg IV furosemide b.i.d. Monitor renal function and electrolytes with daily BMP, replete electrolytes as needed Low-sodium diet Check 2D echo Further recommendations to follow in regards to medical therapy after review of echocardiogram (2) COPD (chronic obstructive pulmonary disease): Qualifiers: COPD type: unspecified COPD Qualified Code(s): J44.9 - Chronic obstructive pulmonary disease, unspecified Code(s): J44.9 - Chronic obstructive pulmonary disease, unspecified Status: Acute Assessment and Plan: Per patient history she was diagnosed with COPD about 1 year ago, unclear how this diagnosis was established. Likely does have some underlying lung disease because she has a 40 year history of cigarette smoking. She did have a consultation with Dr. Patton today for her shortness of breath-she was sent to the emergency department from this visit. (3) Shortness of breath: Code(s): R06.02 - Shortness of breath Status: Acute Assessment and Plan: Probably secondary to a combination of COPD exacerbation and acute CHF. She was ruled out for PE. She is COVID negative. As above, continue diuresis and nebulizer treatments as needed. (4) Tobacco abuse: Code(s): Z72.0 - Tobacco use Status: Acute Assessment and Plan: Counseling was performed. History of Present Illness History of Present Illness Consult date/time: 08/09/21 15:01 Ms. Brenner is a 56-year-old female with a past medical history of leukemia status post chemotherapy in COPD who presents to the hospital with a chief complaint of shortness of breath. She was sent to the emergency department from her zinc plater's office today due to symptoms concerning for heart failure. Patient states that over the past month she has been experiencing shortness of breath that is gotten progressively worse over that period of time. She says that she has been experiencing shortness of breath with activity and notes that she becomes out of breath and has to take a rest when walking from room to room in her house. She also endorses orthopnea and tells me that she has not slept for a much in the past month because whenever she tries to lay down she feels like she can't breathe. She has also noticed some mild swelling in her ankles and feet. She does not have any known cardiac history and has never experienced these types of symptoms before. Her initial workup was significant for BNP of 4900, chest x-ray with some pulmonary edema and cardiomegaly noted. She has been admitted to the hospital for further evaluation treatment her shortness of breath. Requesting physician: Lars Mckeon MD Reason For Visit: Acute CHF Review of Systems Review of Systems: All systems reviewed & are unremarkable except as noted in HPI and below Constitutional: Constitutional: Reports difficulty sleeping Eyes: Eyes: Denies change in vision ENT: Reports Normal hearing present Cardiovascular: Cardiovascular: Denies chest pain, Reports pedal edema, Reports leg edema and Denies palpitations Respiratory: Respiratory: Reports chest congestion, Reports cough, Reports dyspnea and Reports dyspnea o
--- NOTE | 2021-08-09 15:06 | ADMGEN ---
This patient, Erik Brenner, was admitted to [address] [place] [address] Room 300-01 at 1446. Patient/family oriented to hospital policies and general routines including ID bracelet, bed and alarms, visiting hours, pain management, procedures, bathroom and other care routines, personal items, smoking policy, room service/diet, and visiting hours. Information on how to activate the Rapid Response Team has been discussed. Patient/Family are encouraged to report perceived risks to care and to ask questions if they do not understand what they are told or what they should do.
[2021-08-09] MEDS: PERFLUTREN LIPID MICROSPHERES 1.5 ML VIAL DILUTED TO 10 ML TOTAL VOLUME IV PUSH (16:23)
--- NOTE | 2021-08-09 16:23 | IVDEFINITY ---
Prior to administration of IV Definity the patient was educated on the risks and benefits of the imaging enhancing agent including potential adverse side effects. The patient verbalized understanding. Allergies were verified. No exclusion criteria were identified and at least one of the following inclusion criteria were met: 1) physician request, 2) patient technically difficult to image (per the [place] [employer] Echocardi[employer] guidelines of two or more segments not discernable within the apical view), or 3) questionable left ventricular function. ?
[2021-08-09 17:32] LABS: Troponin I 0.027 ng/mL (0.000-0.034)
[2021-08-09 18:06] LABS: Anion Gap 10 mmol/L (8-16); Blood Urea Nitrogen 13 mg/dL (7-17); Calcium 9.8 mg/dL (8.4-10.2); Carbon Dioxide 22 mmol/L (22-30); Chloride 100 mmol/L (98-107); Estimated CRCL calculation 59 ml/min; Estimated Glomerular Filt Rate > 60; Glucose 131 mg/dL (65-110); Potassium 4.2 mmol/L (3.4-5.0); Sodium 132 mmol/L (137-145)
--- NOTE | 2021-08-09 18:18 | PC.NURSE ---
On 08/09/21, the student, [ Patricia Mckenzie], provided care and completed [facility] documentation on this patient. I have reviewed the student's documentation and agree with the findings.
[2021-08-09] MEDS: SACUBITRIL/VALSARTAN 24-26 MG TABLET 1 TAB PO (20:03)
[2021-08-09] MEDS: carvediloL 3.125 MG TABLET PO (20:03)
[2021-08-09 22:05] LABS: Alanine Aminotransferase 142 U/L (4-35); Albumin Level 4.1 g/dL (3.5-5.1); Alkaline Phosphatase 115 U/L (38-126); Aspartate Amino Transferase 147 U/L (14-36); Bilirubin,Total 0.8 mg/dL (0.2-1.3); Magnesium 1.8 mg/dL (1.6-2.3)
[2021-08-09] MEDS: NICOTINE (*PBKC) 14 MG PATCH 1 PATCH TRANSDERM (22:28)
[2021-08-09 22:53] LABS: SARS-CoV-2 RNA PCR Negative
[2021-08-09 23:51] LABS: Barbiturate Screen Urine Negative (Negative); Benzodiazepines Screen Urine Negative (Negative)
[2021-08-09 23:58] LABS: Cannabinoid Screen Urine Negative (Negative); Cocaine Screen Urine Negative (Negative); Methadone Screen Urine Negative (Negative); Opiate Screen Urine Negative (Negative); Phencyclidine Screen Urine Negative (Negative)
[2021-08-10] VITALS (13 sets, daily range): BP systolic 104–112; BP diastolic 62–73; PULSE 94–103; RESP 16–18; TEMP 36.1–36.7; O2SAT 92–97
[2021-08-10 01:04] LABS: Amphetamine Screen Urine Positive (Negative)
[2021-08-10] MEDS: ACETAMINOPHEN 500 MG TABLET 1000 MG PO ×3 (02:30→19:49)
[2021-08-10 06:21] LABS: Free T4 Free Thyroxine Reflex 1.81 ng/dL (0.78-2.19)
[2021-08-10 07:25] LABS: Basophils Absolute Auto 0.1 K/mm3 (0.0-0.1); Basophils Percent Auto 0.4 % (0.2-1.2); Eosinophils Absolute Auto 0.4 K/mm3 (0-0.3); Eosinophils Percent Auto 2.4 % (0-4.4); Hematocrit 38.9 % (37.0-47.0); Hemoglobin 12.8 g/dL (12.0-15.0); Immature Granulocyte Absolute 0.05 K/mm3 (0.00-0.031); Immature Granulocyte Percent A 0.3 % (0-0.5); Lymphocytes Absolute Auto 11.94 K/mm3 (0.9-3.2); Lymphocytes Percent Auto 66.6 % (18.3-44.2); Mean Corpuscular HGB Conc 32.9 g/dl (32-36); Mean Corpuscular Hemoglobin 29.6 pg (26-34); Mean Platelet Volume 9.4 fl (7.4-10.4); Monocytes Absolute Auto 0.8 K/mm3 (0.1-0.6); Monocytes Percent Auto 4.4 % (2.6-8.5); Neutrophils Absolute Auto 4.7 K/mm3 (1.3-6.7); Neutrophils Percent Auto 25.9 % (45.5-73.1); Platelet Count Result 359 k/mm3 (150-375); Red Blood Count 4.32 M/mm3 (4.2-5.4); Red Cell Distribution Width 15.2 % (11.5-14.5); White Blood Count 17.9 K/mm3 (4.5-10.0)
[2021-08-10 07:34] LABS: Alanine Aminotransferase 118 U/L (4-35); Albumin Level 3.7 g/dL (3.5-5.1); Alkaline Phosphatase 91 U/L (38-126); Anion Gap 6 mmol/L (8-16); Aspartate Amino Transferase 113 U/L (14-36); Blood Urea Nitrogen 12 mg/dL (7-17); CRP 2.5 mg/dL (<1.0); Calcium 8.8 mg/dL (8.4-10.2); Carbon Dioxide 24 mmol/L (22-30); Chloride 96 mmol/L (98-107); Cholesterol 128 mg/dL (0-200); Estimated CRCL calculation 67 ml/min; Estimated Glomerular Filt Rate > 60; Glucose 111 mg/dL (65-110); HDL Direct 18 mg/dL; Magnesium 1.9 mg/dL (1.6-2.3); Potassium 3.9 mmol/L (3.4-5.0); Sodium 126 mmol/L (137-145); Triglycerides 101 mg/dL (<150)
[2021-08-10 07:36] LABS: Total Triiodothyronine (T3) 1.14 NG/ML (0.97-1.69)
[2021-08-10 07:42] LABS: LDL Cholesterol Direct 97 mg/dL
[2021-08-10 07:55] LABS: Atypical Lymphocytes Present; Platelet Estimate Adequate (Adequate); Smudge Cells MODERATE
[2021-08-10] MEDS: FUROSEMIDE INJ 40 MG/4 ML VIAL 20 MG IV PUSH (09:16)
[2021-08-10] MEDS: SACUBITRIL/VALSARTAN 24-26 MG TABLET 1 TAB PO ×2 (09:54→21:21)
[2021-08-10] MEDS: carvediloL 3.125 MG TABLET PO ×2 (09:54→21:21)
[2021-08-10] MEDS: SPIRONOLACTONE 25 MG TABLET PO (09:55)
[2021-08-10] MEDS: NICOTINE (*PBKC) 14 MG PATCH 1 PATCH TRANSDERM (09:57)
[2021-08-10] MEDS: ENOXAPARIN 40 MG/0.4 ML SYRINGE SUB-Q (09:59)
--- NOTE | 2021-08-10 12:11 | PC.NURSE ---
On 08/10/21, the student, [ Mary Garcia], provided care and completed [facility] documentation on this patient. I have reviewed the student's documentation and agree with the findings.
--- NOTE | 2021-08-10 13:07 | PM.IMPN ---
Progress Note: A&P Assessment and Plan (1) Hypertension: Code(s): I10 - Essential (primary) hypertension Status: Acute (2) Elevated LFTs: Code(s): R79.89 - Other specified abnormal findings of blood chemistry Status: Acute (3) Left bundle branch block: Code(s): I44.7 - Left bundle-branch block, unspecified Status: Acute (4) Sinus tachycardia: Code(s): R00.0 - Tachycardia, unspecified Status: Acute (5) Acute congestive heart failure: Code(s): I50.9 - Heart failure, unspecified Status: Acute (6) COPD (chronic obstructive pulmonary disease): Qualifiers: COPD type: unspecified COPD Qualified Code(s): J44.9 - Chronic obstructive pulmonary disease, unspecified Code(s): J44.9 - Chronic obstructive pulmonary disease, unspecified Status: Acute (7) Acute CHF: Qualifiers: Heart failure type: unspecified Qualified Code(s): I50.9 - Heart failure, unspecified Code(s): I50.9 - Heart failure, unspecified Status: Acute (8) Tobacco abuse: Code(s): Z72.0 - Tobacco use Status: Acute (9) Hyperlipidemia: Code(s): E78.5 - Hyperlipidemia, unspecified Status: Acute (10) Headache: Code(s): R51.9 - Headache, unspecified Status: Acute (11) Cardiomyopathy: Code(s): I42.9 - Cardiomyopathy, unspecified Status: Acute (12) Hypothyroidism: Code(s): E03.9 - Hypothyroidism, unspecified Status: Acute Additional Plan 08/10/21 fiorect x 1 for GRANDE will monitor for impovement and try and control w Tylenol alone cardio following for chf, recs appreciated lasix 40mg IV BID duonebs cont home meds TSH w reflex does not need levothyroxine adjusted if taking +amphetamines in urine Subjective Date/time seen: 08/10/21 13:07 pt complains of GRANDE unimproved w tylenol no other complaints band like across forehead gripping with pain at base of skull where insertion of trap is Exam Narrative: General: Well-developed, nontoxic-appearing female sitting up in bed. HEENT: Normocephalic, atraumatic. EOMI. Sclerae anicteric. Oral mucosa moist. Neck: Supple. No JVD. Respiratory: Respirations are nonlabored. crackles at the bases. Cardiovascular: Tachycardic with S1, S2, and S3. No murmur or rub. Gastrointestinal: Abdomen is soft, nontender, and nondistended Skin: Warm and dry. Extremities: No cyanosis, clubbing, or significant edema. Radial and pedal pulses intact. Neurological: Alert. Cranial nerves 2-12 are grossly intact. No gross focal deficits to casual conversation. Psychiatric: mood and affect congruent Objective Data Vital Signs Vital Signs: Vital Signs - 24 hr 08/09/21 14:45 08/09/21 16:00 08/09/21 20:00 Temperature 97.6 F Pulse Rate 120 H 110 H 115 H Respiratory Rate 28 H 16 Blood Pressure 118/84 Pulse Oximetry 97 94 08/09/21 20:03 08/09/21 21:34 08/10/21 00:00 Temperature 98.0 F Pulse Rate 110 H 115 H 102 H Respiratory Rate 16 Blood Pressure 103/68 Pulse Oximetry 94 08/10/21 04:00 08/10/21 05:47 08/10/21 08:17 Temperature 97.3 F L 97 F L Pulse Rate 101 H 101 H 103 H Respiratory Rate 16 Blood Pressure 109/70 106/72 Pulse Oximetry 94 95 08/10/21 12:11 Temperature Pulse Rate Respiratory Rate Blood Pressure Pulse Oximetry 97 Intake/Output Intake/Output: Intake & Output 08/07/21 08/08/21 08/09/21 08/10/21 23:59 23:59 23:59 23:59 Intake Total 120 1200 Output Total 0 1000 Balance 120 200 Meds/Results Medications: Active Medications Generic Name Dose Route Start Last Admin Trade Name Freq PRN Reason Stop Dose Admin Acetaminophen 1,000 mg 08/10/21 02:04 08/10/21 10:58 Acetaminophen 500 Mg Tablet PO 1,000 mg Q6H PRN Administration Mild Pain (1-3) or Fever Carvedilol 3.125 mg 08/09/21 21:00 08/10/21 09:54 Carvedilol 3.125 Mg Tablet PO 3.125 mg Q12HR [facility] Ad
--- NOTE | 2021-08-10 13:18 | PM.PNCARD ---
Progress Note: A&P Assessment and Plan (1) Acute CHF: Qualifiers: Heart failure type: unspecified Qualified Code(s): I50.9 - Heart failure, unspecified Code(s): I50.9 - Heart failure, unspecified Status: Acute Assessment and Plan: She enters the hospital with a chief complaint of shortness of breath. Also experiencing orthopnea, lower extremity edema. The initial workup in the emergency department showed pulmonary edema, cardiomegaly on chest x-ray, and elevated BNP consistent with congestive heart failure. She was given 1 dose of IV furosemide 20 mg. She did not notice any improvement in her breathing after receiving this. She does not appear to be markedly volume overloaded on exam. Will increase her furosemide up to 40 mg IV q.12. Monitor renal function and electrolytes with daily BMP, replete electrolytes as needed Low-sodium diet Further recommendations to follow in regards to medical therapy after review of echocardiogram Will keep NPO after midnight for coronary angiogram tomorrow. I talked about the risks benefits alternatives and she is willing to proceed. Will also order a TSH, free T4 level, HIV test as well as ferritin for nonischemic etiologies Echo shows severe LV dysfunction. (2) COPD (chronic obstructive pulmonary disease): Qualifiers: COPD type: unspecified COPD Qualified Code(s): J44.9 - Chronic obstructive pulmonary disease, unspecified Code(s): J44.9 - Chronic obstructive pulmonary disease, unspecified Status: Acute Assessment and Plan: Per patient history she was diagnosed with COPD about 1 year ago, unclear how this diagnosis was established. Likely does have some underlying lung disease because she has a 40 year history of cigarette smoking. She did have a consultation with Dr. Patton today for her shortness of breath-she was sent to the emergency department from this visit. (3) Shortness of breath: Code(s): R06.02 - Shortness of breath Status: Acute Assessment and Plan: Probably secondary to a combination of COPD exacerbation and acute CHF. She was ruled out for PE. She is COVID negative. As above, continue diuresis and nebulizer treatments as needed. (4) Tobacco abuse: Code(s): Z72.0 - Tobacco use Status: Acute Assessment and Plan: Counseling was performed. (5) Cardiomyopathy: Code(s): I42.9 - Cardiomyopathy, unspecified Status: Acute Assessment and Plan: Uncertain if this is ischemic or nonischemic to this point. Plan for angiogram tomorrow Subjective Date/time seen: 08/10/21 13:18 Interval history: 56-year-old admitted with shortness of breath Date of service 08/10/2021: She feels about the same. May be slightly better. No chest pain at rest. She can lie flat Review of Systems Review of Systems: All systems reviewed & are unremarkable except as noted in HPI and below Constitutional: Constitutional: Reports difficulty sleeping, Denies excessive sweating, Denies fatigue and Reports headache(s) Eyes: Eyes: Denies change in vision ENT: Reports Normal hearing present, Reports headache(s) and Denies neck pain Cardiovascular: Cardiovascular: Denies chest pain, Reports pedal edema, Reports leg edema, Denies palpitations, Reports dyspnea and Reports dyspnea on exertion Respiratory: Respiratory: Reports chest congestion, Reports cough, Reports dyspnea and Reports dyspnea on exertion Gastrointestinal: Gastrointestinal: Reports constipation, Denies diarrhea, Reports nausea and Denies vomiting Genitourinary: Genitourinary: Denies hematuria, Denies nocturia, Denies urinary incontinence and Denies urinary hesitancy Musculoskeletal: Musculoskeletal: Denies back pain, Denies arthralgias and Denies neck pain Integumentary/Breasts: Skin/Breast: Denies dry skin and Denies pruritus Neurologic: Reports Normal hearing present, Denies confusion and Reports headache(s) Psy
[2021-08-10] MEDS: ACETAMINOPHEN/BUTALBITAL/CAFFEINE 325-50-40 MG TABLET (FIORICET) 1 TAB PO (14:58)
[2021-08-10 16:27] LABS: Anion Gap 6 mmol/L (8-16); Blood Urea Nitrogen 12 mg/dL (7-17); Calcium 8.9 mg/dL (8.4-10.2); Carbon Dioxide 22 mmol/L (22-30); Chloride 94 mmol/L (98-107); Estimated CRCL calculation 53 ml/min; Estimated Glomerular Filt Rate > 60; Glucose 157 mg/dL (65-110); Potassium 3.6 mmol/L (3.4-5.0); Sodium 122 mmol/L (137-145)
[2021-08-10] MEDS: FUROSEMIDE INJ 40 MG/4 ML VIAL IV PUSH (17:30)
[2021-08-10 18:28] LABS: HIV 1/2 Ab P24 Ag Result Negative (Negative)
[2021-08-11] VITALS (23 sets, daily range): BP systolic 93–112; BP diastolic 60–87; PULSE 76–105; RESP 15–20; TEMP 36.1–36.8; O2SAT 94–99
--- NOTE | 2021-08-11 00:21 | ECG_ITS ---
Measurements Intervals [place] Rate: 96 P: 73 UT: 171 QRS: 259 QRSD: 149 T: 63 QT: 418 QTc: 530 Interpretive Statements SINUS RHYTHM RIGHT AXIS DEVIATION POSSIBLE LEFT ATRIAL ENLARGEMENT LEFT BUNDLE BRANCH BLOCK BASELINE ARTIFACT- I ABNORMAL ECG Electronically Signed On 08-11-2021 6:29:23 DIGITAL PRODUCER by Arsalan Gage D.O.
--- NOTE | 2021-08-11 07:41 | WPDHPUPDATE1 ---
History and Physical Update Update Date/Time: 08/11/21 07:41 History and Physical has been reviewed, including an updated exam of the patient. There are NO changes in the patient's condition. Risks, benefits, and alternatives have been discussed and questions answered. Patient agrees to proceed with procedure.
--- NOTE | 2021-08-11 07:41 | WPDMODSED ---
Moderate Sedation Note-Pt Data Patient Data Allergies Allergy/AdvReac Type Severity Reaction Status Date / Time codeine Allergy Mild Nausea and Verified 08/10/21 15:43 Vomiting Home Medications Medication Instructions Recorded Confirmed Type albuterol sulfate [Ventolin HFA] 2 puff INHALATION QID PRN #8.5 gm 05/03/21 08/10/21 Rx hydrochlorothiazide 12.5 mg PO DAILY #20 tablet 05/03/21 08/10/21 Rx multivitamin 1 tablet PO DAILY #30 tablet 06/02/21 08/10/21 Rx albuterol sulfate 2.5 mg CONTINUOUS NEBULIZATION Q6H 08/10/21 08/10/21 History PRN Current Medications: Active Medications Acetaminophen (Acetaminophen 500 Mg Tablet) 1,000 mg PO Q6H PRN PRN Reason: Mild Pain (1-3) or Fever Last Admin: 08/10/21 19:49 Dose: 1,000 mg Documented by: Carvedilol (Carvedilol 3.125 Mg Tablet) 3.125 mg PO Q12HR [facility] Last Admin: 08/10/21 21:21 Dose: 3.125 mg Documented by: Enoxaparin Sodium (Enoxaparin 40 Mg/0.4 Ml Syringe) 40 mg SUB-Q DAILY [facility] Last Admin: 08/10/21 09:59 Dose: 40 mg Documented by: Furosemide (Furosemide Inj 40 Mg/4 Ml Vial) 40 mg IV PUSH BID [facility] Last Admin: 08/10/21 17:30 Dose: 40 mg Documented by: Nicotine (Nicotine (*Pbkc) 14 Mg Patch) 1 patch [facility] Last Admin: 08/10/21 09:57 Dose: 1 patch Documented by: Sacubitril/Valsartan (Sacubitril/Valsartan 24-26 Mg Tablet) 1 tab PO Q12HR [facility] Last Admin: 08/10/21 21:21 Dose: 1 tab Documented by: Spironolactone (Spironolactone 25 Mg Tablet) 25 mg PO QAM [facility] Last Admin: 08/10/21 09:55 Dose: 25 mg Documented by: Sedation/Anesthesia: No previous sedation/anesthesia problems (including family history). [facility] Past Medical History Medical History Anxiety Degenerative disc disease Depression Hyperlipidemia No longer on medication Hypertension No longer on medication Hypothyroidism No longer on medication Left bundle branch block On EKG tracings as far back as April 2020. Peripheral neuropathy Small lymphocytic lymphoma Tobacco abuse Surgical History Surgical History History of 2 sections History of breast biopsy History of endometrial ablation Family History Family History Mother Congestive heart failure Sibling Chronic obstructive pulmonary disease Social History Social History Social History: Surrogate decision maker: Ender Robb or TOBIAS Dariussandra, rashmi. Code status: Full code. Smoking packs per day: 1 Smoking cigarettes per day: 20.0 Years smoked: 40 Smoking pack-years: 40.00 Smoking status: Current every day smoker Tobacco type: cigarettes Additional smoking assessment comments: Trying to cut back, now but half a pack a day Alcohol intake: current Alcohol use details: Socially and in moderation Substance use: former Substance use type: marijuana, crack/cocaine and amphetamines Additional living arrangements comments: The patient lives in [place] with her 2 sons. Additional occupation/education comments: Currently unemployed. Mod Sed Physical Exam Physical Exam Pre Procedural Exam: Normal: Appearance, Eyes, Ears, Nose, Neck, Throat, Airway, Lungs, Heart Size, Heart Rate, Heart Rhythm, Neuro Exam, Abdomen, Liver, Kidneys, Spleen, Breasts, Genitalia, Extremities and Skin Hours since solid foods: 8 Hours since liquid intake: 8 Mallampati Classification: class 1 Internal Medicine - PN: Obj Da Vital Signs Vital Signs: Vital Signs - 24 hr 08/10/21 08:00 08/10/21 08:17 08/10/21 12:00 Temperature 36.1 C L Pulse Rate 101 H 103 H 96 Respiratory Rate Blood Pressure 106/72 Pulse Oximetry 95 08/10/21 12:11 08/10/21 14:00 08/10/21 16:00 Temperature 36.4 C Pulse Rate 94 97 Respiratory Rate 16 Blood Pressure 112/62 Pulse O
--- NOTE | 2021-08-11 07:44 | P.PCNCC_ITS ---
Cardiac Cath Procedure Note Date of procedure:: 08/11/21 Performing physician:: Babita Fernández MD date of service 08/11/2021 Indication:: New diagnosis of cardiomyopathy Brief clinical history:: Ms. Brenner is a 56-year-old female with a past medical history of leukemia status post chemotherapy in COPD who presents to the hospital with a chief complaint of shortness of breath. minimal lower limb edema. Was found to have ejection fraction less than 15%. She was brought into confectionery laboratory manager to rule out CAD Procedure Procedure performed:: 1-Moderate sedation that started at 7:22 a.m. and ended at 7:40 a.m with total duration 18 minutesusing2 mg of Versed and50 mcg fentanyl. The registered nurse was nicolle diaz. 2-Selective left and right coronary angiogram. 3-Left heart catheterization with measurement of LVEDP and measurement of gradient across aortic valve. 4-Right common femoral arterial angiogram. 5-Deployment of 6 [place] Angio-Seal. Sedation/Medication given:: Moderate sedation. Access site:: Right common femoral artery. Estimated blood loss:: 10cc Procedure note:: After informed consent patient was brought in to confectionery laboratory manager with the was draped and prepped in usual manner. Moderate sedation was given and the right groin was infiltrated using 1% lidocaine. Five [place] sheath was obtained using micropuncture needle and the modified Seldinger technique. Selective left coronary angiogram was done using JL4 catheter with the tip of the catheter placed in the left main coronary artery. Selective right coronary angiogram was done using JR4 catheter with the tip of the catheter placed to the right coronary artery. After that 5 [place] pigtail catheter was advanced across the aortic valve into the left ventricle with measurement of LVEDP and measurement of gradient across aortic valve. Right common femoral arterial angiogram was done. Findings:: 1- left coronary artery is a large artery that divides into large LAD, large circumflex artery. Left main is is short and free of disease. 2- left anterior descending artery is a large artery that runs and wraps around the apex. Has minimal irregularities proximally. 3- leftcircumflex artery is a large artery And has minimal irregularities. Large OM1 and OM2 distally free of disease. 4- right coronary artery is Large artery and dominant free of disease. 5- LVEDP was 25 mm Hg and no gradient across aortic valve. 6- opening arterial pressure was 120/80 and closing pressure was 90/60 7- right femoral artery angiogram shows no significant disease in the right common femoral artery. Conclusion:: minimal coronary irregularities. nonischemic cardiomyopathy. Assessment and Plan Additional Plan optimize heart failure management.
[2021-08-11] MEDS: SACUBITRIL/VALSARTAN 24-26 MG TABLET 1 TAB PO ×2 (09:22→19:55)
[2021-08-11] MEDS: carvediloL 3.125 MG TABLET PO ×2 (09:23→19:55)
[2021-08-11] MEDS: ENOXAPARIN 40 MG/0.4 ML SYRINGE SUB-Q (09:24)
[2021-08-11] MEDS: NICOTINE (*PBKC) 14 MG PATCH 1 PATCH TRANSDERM (09:25)
--- NOTE | 2021-08-11 09:29 | PM.IMPN ---
Progress Note: A&P Assessment and Plan (1) Hypertension: Code(s): I10 - Essential (primary) hypertension Status: Acute (2) Elevated LFTs: Code(s): R79.89 - Other specified abnormal findings of blood chemistry Status: Acute (3) Left bundle branch block: Code(s): I44.7 - Left bundle-branch block, unspecified Status: Acute (4) Sinus tachycardia: Code(s): R00.0 - Tachycardia, unspecified Status: Acute (5) Acute congestive heart failure: Code(s): I50.9 - Heart failure, unspecified Status: Acute (6) COPD (chronic obstructive pulmonary disease): Qualifiers: COPD type: unspecified COPD Qualified Code(s): J44.9 - Chronic obstructive pulmonary disease, unspecified Code(s): J44.9 - Chronic obstructive pulmonary disease, unspecified Status: Acute (7) Tobacco abuse: Code(s): Z72.0 - Tobacco use Status: Acute (8) Hyperlipidemia: Code(s): E78.5 - Hyperlipidemia, unspecified Status: Acute (9) Headache: Code(s): R51.9 - Headache, unspecified Status: Acute (10) Cardiomyopathy: Code(s): I42.9 - Cardiomyopathy, unspecified Status: Acute (11) Hypothyroidism: Code(s): E03.9 - Hypothyroidism, unspecified Status: Acute (12) Nonischemic cardiomyopathy: Code(s): I42.8 - Other cardiomyopathies Status: Acute (13) Systolic CHF, acute: Code(s): I50.21 - Acute systolic (congestive) heart failure Status: Acute Additional Plan 08/10/21 fiorect x 1 for GRANDE will monitor for impovement and try and control w Tylenol alone cardio following for chf, recs appreciated lasix 40mg IV BID duonebs cont home meds TSH w reflex does not need levothyroxine adjusted if taking +amphetamines in urine 08/11/21 EF 15% cath report reviewed -> nonischemic cardiomyopathy. hyponatremia slightly improved this a.m. Patient will need medical optimization prior to discharge Anticipate need for Zoll vest Cardiology consulted further recs appreciated Subjective Date/time seen: 08/11/21 09:29 Patient doing okay we discussed the findings of her cardiac catheterization this morning which did not reveal any significant coronary artery disease. Unfortunately her systolic function is severely depressed with an EF of 15%. Patient is counseled extensively on the need to stop smoking and stop doing methamphetamine and other stimulants. Patient states that she will be compliant with all medical indications as she has children and grandchildren that she would like to be around to see Exam Narrative: General: Well-developed, nontoxic-appearing female sitting up in bed. HEENT: Normocephalic, atraumatic. EOMI. Sclerae anicteric. Oral mucosa moist. Neck: Supple. No JVD. Respiratory: Respirations are nonlabored. crackles at the bases. Cardiovascular: Tachycardic with S1, S2, and S3. No murmur or rub. Gastrointestinal: Abdomen is soft, nontender, and nondistended Skin: Warm and dry. Extremities: No cyanosis, clubbing, or significant edema. Radial and pedal pulses intact. Neurological: Alert. Cranial nerves 2-12 are grossly intact. No gross focal deficits to casual conversation. Psychiatric: mood and affect congruent depressed Objective Data Vital Signs Vital Signs: Vital Signs - 24 hr 08/10/21 12:00 08/10/21 12:11 08/10/21 14:00 Temperature 97.6 F Pulse Rate 96 94 Pulse Rate [Right Femoral Palpation] Pulse Rate [Right Pedal (Dorsalis Pedis) Palpation] Respiratory Rate 16 Blood Pressure 112/62 Pulse Oximetry 97 92 08/10/21 16:00 08/10/21 20:00 08/10/21 21:21 Temperature Pulse Rate 97 100 99 Pulse Rate [Right Femoral Palpation] Pulse Rate [Right Pedal (Dorsalis Pedis) Palpation] Respiratory Rate Blood Pressure Pulse Oximetry 08/10/21 21:26 08/10/21 21:54 08/11/21 00:00 Temperature 98.0 F Pulse Rate 99 97 105 H Pulse Rate [Right
--- NOTE | 2021-08-11 09:31 | PC.NURSE ---
Report from FAINA Ferguson @ 6106. Return from cardiac cath rn via bed @ 09. Assessed right groin with FAINA Ferguson. Patient bedrest until 944.
[2021-08-11 10:09] LABS: Basophils Absolute Auto 0.1 K/mm3 (0.0-0.1); Basophils Percent Auto 0.5 % (0.2-1.2); Eosinophils Absolute Auto 0.4 K/mm3 (0-0.3); Eosinophils Percent Auto 1.9 % (0-4.4); Hematocrit 47.7 % (37.0-47.0); Hemoglobin 15.3 g/dL (12.0-15.0); Immature Granulocyte Absolute 0.03 K/mm3 (0.00-0.031); Immature Granulocyte Percent A 0.2 % (0-0.5); Lymphocytes Absolute Auto 13.59 K/mm3 (0.9-3.2); Lymphocytes Percent Auto 74.3 % (18.3-44.2); Mean Corpuscular HGB Conc 32.1 g/dl (32-36); Mean Corpuscular Hemoglobin 29.9 pg (26-34); Mean Corpuscular Volume 93.2 fl (80-100); Mean Platelet Volume 9.3 fl (7.4-10.4); Monocytes Absolute Auto 0.6 K/mm3 (0.1-0.6); Monocytes Percent Auto 3.2 % (2.6-8.5); Neutrophils Absolute Auto 3.6 K/mm3 (1.3-6.7); Neutrophils Percent Auto 19.9 % (45.5-73.1); Nucleated Red Blood Cells Perc 0.2 % (0.0-0.2); Platelet Count Result 337 k/mm3 (150-375); Red Blood Count 5.12 M/mm3 (4.2-5.4); Red Cell Distribution Width 15.5 % (11.5-14.5); White Blood Count 18.3 K/mm3 (4.5-10.0)
[2021-08-11 10:24] LABS: Anion Gap 8 mmol/L (8-16); Anisocytosis 1+ (NORMAL); Blood Urea Nitrogen 10 mg/dL (7-17); Calcium 9.1 mg/dL (8.4-10.2); Carbon Dioxide 23 mmol/L (22-30); Chloride 97 mmol/L (98-107); Estimated CRCL calculation 63 ml/min; Estimated Glomerular Filt Rate > 60; Glucose 123 mg/dL (65-110); Platelet Estimate Adequate (Adequate); Potassium 3.9 mmol/L (3.4-5.0); Smudge Cells FEW; Sodium 128 mmol/L (137-145)
[2021-08-11] MEDS: SPIRONOLACTONE 25 MG TABLET PO (13:34)
[2021-08-11] MEDS: FUROSEMIDE INJ 40 MG/4 ML VIAL 20 MG IV PUSH (16:10)
[2021-08-12] VITALS (11 sets, daily range): BP systolic 107–118; BP diastolic 68–90; PULSE 55–105; RESP 18–20; TEMP 36.3–36.6; O2SAT 91–95
[2021-08-12 06:30] LABS: Anion Gap 7 mmol/L (8-16); Blood Urea Nitrogen 10 mg/dL (7-17); Calcium 9.4 mg/dL (8.4-10.2); Carbon Dioxide 26 mmol/L (22-30); Chloride 101 mmol/L (98-107); Estimated CRCL calculation 70 ml/min; Estimated Glomerular Filt Rate > 60; Glucose 169 mg/dL (65-110); Sodium 134 mmol/L (137-145)
[2021-08-12] MEDS: SACUBITRIL/VALSARTAN 24-26 MG TABLET 1 TAB PO ×2 (09:10→20:12)
[2021-08-12] MEDS: NICOTINE (*PBKC) 14 MG PATCH 1 PATCH TRANSDERM (09:10)
[2021-08-12] MEDS: ENOXAPARIN 40 MG/0.4 ML SYRINGE SUB-Q (09:10)
[2021-08-12] MEDS: carvediloL 3.125 MG TABLET PO ×2 (09:10→20:12)
[2021-08-12] MEDS: FUROSEMIDE INJ 40 MG/4 ML VIAL IV PUSH (09:10)
[2021-08-12] MEDS: SPIRONOLACTONE 25 MG TABLET PO (09:10)
--- NOTE | 2021-08-12 12:18 | PM.PNCARD ---
Progress Note: A&P Assessment and Plan (1) Acute CHF: Qualifiers: Heart failure type: unspecified Qualified Code(s): I50.9 - Heart failure, unspecified Code(s): I50.9 - Heart failure, unspecified Status: Deleted Assessment and Plan: She enters the hospital with a chief complaint of shortness of breath. Also experiencing orthopnea, lower extremity edema. The initial workup in the emergency department showed pulmonary edema, cardiomegaly on chest x-ray, and elevated BNP consistent with congestive heart failure. Echocardiogram showed severe LV dysfunction with an EF of less than 15%. Coronary angiogram did not show any coronary disease. She is improving clinically Will shift her from IV to oral furosemide today GDMT with Coreg, Entresto, spironolactone. Add jardiance today. Up titrate these to target doses as outpatient Monitor renal function and electrolytes with daily BMP. Replace electrolytes as necessary I discussed the concept of a LifeVest with her. She would like to proceed with this, order placed for LifeVest. Will likely be appropriate for discharge home in the next day or two (2) COPD (chronic obstructive pulmonary disease): Qualifiers: COPD type: unspecified COPD Qualified Code(s): J44.9 - Chronic obstructive pulmonary disease, unspecified Code(s): J44.9 - Chronic obstructive pulmonary disease, unspecified Status: Acute Assessment and Plan: Per patient history she was diagnosed with COPD about 1 year ago, unclear how this diagnosis was established. Likely does have some underlying lung disease because she has a 40 year history of cigarette smoking. Management per hospitalist. (3) Shortness of breath: Code(s): R06.02 - Shortness of breath Status: Acute Assessment and Plan: Probably secondary to a combination of COPD exacerbation and acute CHF. She was ruled out for PE. She is COVID negative. As above, continue diuresis and nebulizer treatments as needed. (4) Tobacco abuse: Code(s): Z72.0 - Tobacco use Status: Deleted Assessment and Plan: Counseling was performed. (5) Cardiomyopathy: Code(s): I42.9 - Cardiomyopathy, unspecified Status: Acute Assessment and Plan: Nonischemic in etiology - likely secondary to her history of methamphetamine use. Additional Plan Subjective Date/time seen: 08/12/21 12:18 cardiology follow-up for CHF She is feeling better today. She does still endorse some shortness of breath with exertion but her breathing at rest has significantly improved. Review of Systems Review of Systems: All systems reviewed & are unremarkable except as noted in HPI and below Constitutional: Constitutional: Reports difficulty sleeping, Denies excessive sweating, Denies fatigue and Reports headache(s) Eyes: Eyes: Denies change in vision ENT: Reports Normal hearing present, Reports headache(s) and Denies neck pain Cardiovascular: Cardiovascular: Denies chest pain, Reports pedal edema, Reports leg edema, Denies palpitations, Reports dyspnea and Reports dyspnea on exertion Respiratory: Respiratory: Reports chest congestion, Reports cough, Reports dyspnea and Reports dyspnea on exertion Gastrointestinal: Gastrointestinal: Reports constipation, Denies diarrhea, Reports nausea and Denies vomiting Genitourinary: Genitourinary: Denies hematuria, Denies nocturia, Denies urinary incontinence and Denies urinary hesitancy Musculoskeletal: Musculoskeletal: Denies back pain, Denies arthralgias and Denies neck pain Integumentary/Breasts: Skin/Breast: Denies dry skin and Denies pruritus Neurologic: Reports Normal hearing present, Denies confusion and Reports headache(s) Psychiatric: Psychiatric: Denies anxiety, Denies confusion and Denies depression Endocrine: Endocrine: Denies excessive sweating, Denies fatigue, Denies flushing and Denies palpitations Hematologic/Lymphatic: Tian
--- NOTE | 2021-08-12 13:56 | PM.IMPN ---
Progress Note: A&P Assessment and Plan (1) Hypertension: Code(s): I10 - Essential (primary) hypertension Status: Acute (2) Elevated LFTs: Code(s): R79.89 - Other specified abnormal findings of blood chemistry Status: Acute (3) Left bundle branch block: Code(s): I44.7 - Left bundle-branch block, unspecified Status: Acute (4) Sinus tachycardia: Code(s): R00.0 - Tachycardia, unspecified Status: Acute (5) Acute congestive heart failure: Code(s): I50.9 - Heart failure, unspecified Status: Acute (6) COPD (chronic obstructive pulmonary disease): Qualifiers: COPD type: unspecified COPD Qualified Code(s): J44.9 - Chronic obstructive pulmonary disease, unspecified Code(s): J44.9 - Chronic obstructive pulmonary disease, unspecified Status: Acute (7) Tobacco abuse: Code(s): Z72.0 - Tobacco use Status: Acute (8) Hyperlipidemia: Code(s): E78.5 - Hyperlipidemia, unspecified Status: Acute (9) Headache: Code(s): R51.9 - Headache, unspecified Status: Acute (10) Cardiomyopathy: Code(s): I42.9 - Cardiomyopathy, unspecified Status: Acute (11) Hypothyroidism: Code(s): E03.9 - Hypothyroidism, unspecified Status: Acute (12) Nonischemic cardiomyopathy: Code(s): I42.8 - Other cardiomyopathies Status: Acute (13) Systolic CHF, acute: Code(s): I50.21 - Acute systolic (congestive) heart failure Status: Acute Additional Plan 08/10/21 fiorect x 1 for GRANDE will monitor for impovement and try and control w Tylenol alone cardio following for chf, recs appreciated lasix 40mg IV BID duonebs cont home meds TSH w reflex does not need levothyroxine adjusted if taking +amphetamines in urine 08/11/21 EF 15% cath report reviewed -> nonischemic cardiomyopathy. hyponatremia slightly improved this a.m. Patient will need medical optimization prior to discharge Anticipate need for Zoll vest Cardiology consulted further recs appreciated 08/12/21 Goal-directed therapy per Cardiology Pending Zoll Vest Continue current care Anticipate discharge home tomorrow with outpatient cardiology follow-up Subjective Date/time seen: 08/12/21 13:56 doing ok upset that she will not be able to go on her [place] vacation. Pt reassured. Zoll vest medical therapy and likely home tomorrow Exam Narrative: General: Well-developed, nontoxic-appearing female sitting up in bed. HEENT: Normocephalic, atraumatic. EOMI. Sclerae anicteric. Oral mucosa moist. Neck: Supple. No JVD. Respiratory: Respirations are nonlabored. crackles at the bases. Cardiovascular: Tachycardic with S1, S2, and S3. No murmur or rub. Gastrointestinal: Abdomen is soft, nontender, and nondistended Skin: Warm and dry. Extremities: No cyanosis, clubbing, or significant edema. Radial and pedal pulses intact. Neurological: Alert. Cranial nerves 2-12 are grossly intact. No gross focal deficits to casual conversation. Psychiatric: mood and affect congruent depressed Objective Data Vital Signs Vital Signs: Vital Signs - 24 hr 08/11/21 14:21 08/11/21 14:32 08/11/21 15:45 Temperature 97.5 F L Pulse Rate 103 H Respiratory Rate 20 Blood Pressure 93/74 L 94/60 L Pulse Oximetry 97 97 08/11/21 16:00 08/11/21 16:04 08/11/21 17:52 Temperature 98.1 F 98.3 F Pulse Rate 94 99 98 Respiratory Rate 20 20 Blood Pressure 94/60 L 103/63 Pulse Oximetry 97 96 08/11/21 19:55 08/11/21 20:00 08/11/21 23:00 Temperature 97.3 F L 97.8 F Pulse Rate 93 100 98 Respiratory Rate 18 18 Blood Pressure 109/67 108/69 Pulse Oximetry 95 97 08/12/21 00:00 08/12/21 03:52 08/12/21 04:00 Temperature 97.8 F Pulse Rate 95 74 105 H Respiratory Rate 20 Blood Pressure 118/90 Pulse Oximetry 95 08/12/21 09:10 Temperature Pulse Rate 104 H Respiratory Rate Blood Pressure Pulse Oximetry
[2021-08-12] MEDS: FUROSEMIDE 40 MG TABLET PO (17:16)
[2021-08-12] MEDS: ACETAMINOPHEN 500 MG TABLET 1000 MG PO (17:20)
[2021-08-13] VITALS: PULSE 98
[2021-08-13 04:00] VITALS: PULSE 97
[2021-08-13 05:40] VITALS: BP 116/80; PULSE 101; RESP 18; TEMP 36.7; O2SAT 94
[2021-08-13 06:46] LABS: Anion Gap 13 mmol/L (8-16); Blood Urea Nitrogen 10 mg/dL (7-17); Calcium 9.7 mg/dL (8.4-10.2); Carbon Dioxide 27 mmol/L (22-30); Chloride 96 mmol/L (98-107); Estimated CRCL calculation 56 ml/min; Estimated Glomerular Filt Rate > 60; Glucose 153 mg/dL (65-110); Potassium 4.3 mmol/L (3.4-5.0); Sodium 136 mmol/L (137-145)
[2021-08-13 08:00] VITALS: PULSE 102
[2021-08-13] MEDS: SACUBITRIL/VALSARTAN 24-26 MG TABLET 1 TAB PO (09:56)
[2021-08-13] MEDS: ENOXAPARIN 40 MG/0.4 ML SYRINGE SUB-Q (09:56)
[2021-08-13] MEDS: EMPAGLIFLOZIN 10 MG TABLET PO (09:57)
[2021-08-13] MEDS: FUROSEMIDE 40 MG TABLET PO (09:57)
[2021-08-13] MEDS: SPIRONOLACTONE 25 MG TABLET PO (09:57)
[2021-08-13] MEDS: NICOTINE (*PBKC) 14 MG PATCH 1 PATCH TRANSDERM (09:57)
[2021-08-13 09:58] VITALS: PULSE 99
[2021-08-13] MEDS: carvediloL 3.125 MG TABLET PO (09:58)
[2021-08-13] MEDS: ACETAMINOPHEN 500 MG TABLET 1000 MG PO (10:00)
--- NOTE | 2021-08-13 10:17 | PM.DS ---
DS: Admitting Diagnosis Discharge Date 08/13/21 Admitting Diagnosis (1) Acute congestive heart failure: Code(s): I50.9 - Heart failure, unspecified Status: Acute Assessment and Plan: Presenting complaints, labs, and imaging today are all consistent with acute congestive heart failure. Etiology not entirely clear at this time. She has had a left bundle branch block on her EKG for at least the last 1.5 years and though she has been having chest tightness that may be related to her pulmonary edema and shortness of breath as her troponins are normal. The patient does have a history of drug abuse including amphetamines and cocaine though she reportedly has not used for several years. No significant alcohol use. Not likely chemotherapy-induced as she has not received that for a couple of years. She did have a recent infection in May as above. At this time she will be admitted to telemetry. She will be cautiously diuresed with close monitoring of volume status as well as renal function. Echocardiogram has been ordered and is pending at this time. Dr. Mims has been consulted and his input is appreciated. (2) Sinus tachycardia: Code(s): R00.0 - Tachycardia, unspecified Status: Acute Assessment and Plan: May be related to above. She is also quite anxious. Check TSH and urine drug screen. (3) Left bundle branch block: Code(s): I44.7 - Left bundle-branch block, unspecified Status: Acute Assessment and Plan: Present on EKG dating back to April 2020. Echocardiogram pending. (4) Elevated LFTs: Code(s): R79.89 - Other specified abnormal findings of blood chemistry Status: Acute Assessment and Plan: May very well be related to hepatic congestion from congestive heart failure. Check hepatitis panel and right upper quadrant ultrasound for completeness sake and monitor. (5) Tobacco abuse: Code(s): Z72.0 - Tobacco use Status: Acute Assessment and Plan: Smoking cessation is imperative and was discussed. I spent approximately 4 minutes counseling the patient. She seems motivated to quit and states she has already cut back to about a half a pack a day. She would like a nicotine patch. (6) Hypertension: Code(s): I10 - Essential (primary) hypertension Status: Acute Assessment and Plan: She has not been on antihypertensives for several years. Blood pressures today are reasonable and will be monitored. (7) Hypothyroidism: Code(s): E03.9 - Hypothyroidism, unspecified Status: Inactive Assessment and Plan: No longer on medication. Check TSH and T4. (8) Hyperlipidemia: Code(s): E78.5 - Hyperlipidemia, unspecified Status: Inactive Assessment and Plan: No longer on medication. Check fasting lipids in a.m. DS: Discharge Diagnosis Discharge Diagnosis (1) Systolic CHF, acute: Code(s): I50.21 - Acute systolic (congestive) heart failure Status: Acute (2) Nonischemic cardiomyopathy: Code(s): I42.8 - Other cardiomyopathies Status: Acute (3) Headache: Code(s): R51.9 - Headache, unspecified Status: Acute (4) Cardiomyopathy: Code(s): I42.9 - Cardiomyopathy, unspecified Status: Acute (5) Hypothyroidism: Code(s): E03.9 - Hypothyroidism, unspecified Status: Acute (6) Hyperlipidemia: Code(s): E78.5 - Hyperlipidemia, unspecified Status: Acute (7) Hypertension: Code(s): I10 - Essential (primary) hypertension Status: Acute (8) Small lymphocytic lymphoma: Code(s): C83.00 - Small cell B-cell lymphoma, unspecified site Status: Acute (9) Acute congestive heart failure: Code(s): I50.9 - Heart failure, unspecified Status: Acute (10) Tobacco abuse: Code(s): Z72.0 - Tobacco use Status: Acute (11) COPD (chronic obstructive pulmonary disease): Qualifiers: PRIMARY CARE COORDINATOR
== END 2021-08-13 13:00 | disposition home or self-care (01) | DRG 192 ==
LOC: ANHED 13:37 → ANH3MEDSUR 14:45
PROVIDERS: Internal Medicine Cardiovascular Disease; Nurse Practitioner; Physician Assistant; Admitting Provider Hospitalist; Emergency Provider Emergency Medicine; Visit Provider Hospitalist
PROC: 4A023N7 Measurement of Cardiac Sampling and Pressure, Left Heart, Percutaneous Approach (ICD-10-PCS; CPT 93452; principal; 2021-08-11 07:15)
PROC: 4A023N7 Measurement of Cardiac Sampling and Pressure, Left Heart, Percutaneous Approach (ICD-10-PCS; 2021-08-11 07:15)
DX: I11.0 Hypertensive heart disease with heart failure (principal); I50.21 Acute systolic (congestive) heart failure; F32.A Depression, unspecified; E78.5 Hyperlipidemia, unspecified; E03.9 Hypothyroidism, unspecified; G62.9 Polyneuropathy, unspecified; F41.9 Anxiety disorder, unspecified; F17.210 Nicotine dependence, cigarettes, uncomplicated; Z20.822 Contact with and (suspected) exposure to COVID-19; J43.9 Emphysema, unspecified; F12.90 Cannabis use, unspecified, uncomplicated; I44.7 Left bundle-branch block, unspecified; F15.10 Other stimulant abuse, uncomplicated; F14.10 Cocaine abuse, uncomplicated; Z92.21 Personal history of antineoplastic chemotherapy; R79.89 Other specified abnormal findings of blood chemistry; R51.9 Headache, unspecified; I42.8 Other cardiomyopathies; R00.0 Tachycardia, unspecified; C83.00 Small cell B-cell lymphoma, unspecified site
CPT/HCPCS: 36415; 36600; 71046; 71275; 76705; 80048; 80053; 80061; 80076; 80307; 82375; 82728; 82805; 83050; 83735; 83880; 84439; 84443; 84480; 84484; 85025; 85380; 85610; 85730; 86140; 86703; 93005; 93458; 94640; 96374; 99285; A9270; C1760; C1887; C1894; C8929; C9803; G0269; G0378; G0379; G0432; J1644; J1650; J1940; J2250; J3010; J7040; Q9957; Q9967; U0003; U0005

== ENCOUNTER 2021-08-24 23:51 | Emergency (ER) | payer OTHER, SELFPAY ==
--- NOTE | ~2021-08-24 | CT_ITS ---
EXAMINATION: CT abdomen pelvis wo con DATE: 08/25/2021 00:24 INDICATION: Left-sided abdomen pain. Nausea and vomiting. TECHNIQUE: Computed tomography (CT) of the abdomen and pelvis was performed without intravenous contr ast. The dose-length product was 250.97 mGy-cm. Automated exposure control and iterative reconstructi on technique were employed. COMPARISON: CT dated 04/30/2020. FINDINGS: Lung bases are unremarkable. Heart size normal. No significant pleural effusion. Small kenneth cardial effusion. No significant vascular abnormality. No lymphadenopathy. The liver, spleen, pancreas, adrenal glands and right kidney are unremarkable. There is a left renal cyst. Gallbladder is present. Small fat-containing umbilical hernia. Nonobstructive bowel gas pattern . No free air or free fluid. There is severe spondylosis at L4-5. No hydronephrosis or ureteral stone . Bladder is unremarkable. Gallbladder is present. Nonobstructive bowel gas pattern. No free air or f ree fluid. There are fluid-filled loops of small bowel in the left upper abdomen which may represent ileus or enteritis. No definite obstruction. IMPRESSION: 1. Fluid filled loops of small bowel left abdomen which may represent ileus or enteritis. No obstruct ion.. Reviewed, dictated and finalized at location B. PASSER IMPRESSION: 1. Fluid filled loops of small bowel left abdomen which may represent ileus or enteritis. No obstruction..
[2021-08-24 23:55] VITALS: PULSE 102; RESP 15
[2021-08-24 23:58] VITALS: BP 131/87; PULSE 99; RESP 21
[2021-08-24 23:59] VITALS: BP 131/87; PULSE 98; RESP 22; TEMP 36.3; O2SAT 100
[2021-08-25] VITALS (17 sets, daily range): BP systolic 115–130; BP diastolic 70–105; PULSE 70–98; RESP 17–33; O2SAT 94–100
--- NOTE | 2021-08-25 | ECG_ITS ---
Measurements Intervals [place] Rate: 98 P: 142 PA: 211 QRS: -70 QRSD: 144 T: 89 QT: 388 QTc: 498 Interpretive Statements SINUS RHYTHM WITH FIRST DEGREE AV BLOCK LEFT AXIS DEVIATION LEFT BUNDLE BRANCH BLOCK BASELINE ARTIFACT- I, II, III, AVR, AVL, AVF, V4-V6 ABNORMAL ECG Electronically Signed On 08-25-2021 7:33:57 [employer] by Arsalan Gage D.O.
--- NOTE | 2021-08-25 00:02 | ED.ABDPAIN ---
HPI - Abdominal Pain General Chief Complaint: Abdominal Pain Stated Complaint: left flank pain Time Seen by Provider: 08/24/21 23:55 Source: patient History of Present Illness HPI narrative: Patient presents with abdominal pain. Short she had sudden onset approximately 1 hour prior to arrival in the ER. Pain is on her left side it is sharp constant, no clear aggravating or alleviating factors, no radiation. Reports associated nausea and vomiting due to her pain reports she felt well prior in this evening and had no complaints. She denies any recent fevers, chills, diarrhea, known sick contacts. She denies any urinary symptoms. Related Data Home Medications Medication Instructions Recorded Confirmed albuterol sulfate 2.5 mg CONTINUOUS NEBULIZATION Q6H 08/10/21 08/25/21 PRN spironolactone [Aldactone] 25 mg PO DAILY 08/25/21 Allergies Allergy/AdvReac Type Severity Reaction Status Date / Time codeine Allergy Mild Nausea and Verified 08/10/21 15:43 Vomiting Review of Systems Review of Systems: CONSTITUTIONAL: Denies fever, chills, or sweats. EYES: Denies visual changes, redness, or discharge. ENT: Denies rhinorrhea, congestion, sore throat, or otalgia. CARDIOVASCULAR: Denies chest pain, palpitations, or edema. RESPIRATORY: Denies cough or dyspnea. GASTROINTESTINAL: Abdominal pain, nausea, vomiting GENITOURINARY: Denies dysuria or hematuria. SKIN: Denies rash or itching. MUSCULOSKELETAL: Denies back pain, joint pain, or myalgia. NEUROLOGIC: Denies headache, numbness, dizziness, or weakness. PSYCHIATRIC: Denies anxiety or depression. All systems reviewed & are unremarkable except as noted in HPI and below PMFSH Past Medical History Medical History Anxiety Degenerative disc disease Depression Hyperlipidemia No longer on medication Hypertension No longer on medication Hypothyroidism No longer on medication Left bundle branch block On EKG tracings as far back as April 2020. Peripheral neuropathy Small lymphocytic lymphoma Tobacco abuse Surgical History Surgical History History of 2 sections History of breast biopsy History of endometrial ablation Family History Family History Mother Congestive heart failure Sibling Chronic obstructive pulmonary disease Social History Social History Social History: Surrogate decision maker: Ender Robb or TOBIAS Hernandez, rashim. Code status: Full code. Smoking packs per day: 1 Smoking cigarettes per day: 20.0 Years smoked: 40 Smoking pack-years: 40.00 Smoking status: Current every day smoker Tobacco type: cigarettes Additional smoking assessment comments: Trying to cut back, now but half a pack a day Alcohol intake: current Alcohol use details: Socially and in moderation Substance use: former Substance use type: marijuana, crack/cocaine and amphetamines Additional living arrangements comments: The patient lives in [place] with her 2 sons. Additional occupation/education comments: Currently unemployed. Exam Narrative: GENERAL: Well-appearing, well-nourished, and in moderate distress due to pain HEAD: Normocephalic, atraumatic. EYES: PERRLA and EOMI. ENT: Nares clear, no rhinorrhea or epistaxis. Mucous membranes moist. NECK: Supple. No masses. No JVD ABDOMEN: Soft, nontender, nondistended, normal active bowel sounds. EXTREMITIES: Normal range of motion. No edema. SKIN: Warm, dry, no rash. NEURO: No focal deficits. Alert and oriented x3. PSYCH: Normal mood and affect. Course Reevaluation(s) Reevaluation #1: Patient has not noted any significant change in her symptoms she is given 8 of morphine and 0.5 of Dilaudid. Results reviewed with patient. Patient is comfortable with outpatient plan. D
[2021-08-25] MEDS: ONDANSETRON INJ 4 MG/2 ML VIAL IV PUSH (00:06)
[2021-08-25] MEDS: MORPHINE SULFATE (*CRX) 4 MG/ML INJ IV PUSH ×2 (00:07→00:26)
[2021-08-25 00:16] LABS: Hematocrit 48.3 % (37.0-47.0); Hemoglobin 15.5 g/dL (12.0-15.0); Mean Corpuscular HGB Conc 32.1 g/dl (32-36); Mean Corpuscular Hemoglobin 29.2 pg (26-34); Mean Corpuscular Volume 91.1 fl (80-100); Platelet Count Result 365 k/mm3 (150-375); Red Cell Distribution Width 14.6 % (11.5-14.5); White Blood Count 22.7 K/mm3 (4.5-10.0)
[2021-08-25 00:40] LABS: Alanine Aminotransferase 23 U/L (4-35); Albumin Level 4.4 g/dL (3.5-5.1); Alkaline Phosphatase 101 U/L (38-126); Anion Gap 8 mmol/L (8-16); Aspartate Amino Transferase 39 U/L (14-36); Bilirubin,Total 0.6 mg/dL (0.2-1.3); Blood Urea Nitrogen 22 mg/dL (7-17); Calcium 10.1 mg/dL (8.4-10.2); Carbon Dioxide 26 mmol/L (22-30); Chloride 98 mmol/L (98-107); Estimated CRCL calculation 39 ml/min; Estimated Glomerular Filt Rate 52; Glucose 178 mg/dL (65-110); Lipase 100 U/L (23-300); Potassium 3.8 mmol/L (3.4-5.0); Sodium 132 mmol/L (137-145)
[2021-08-25 00:43] LABS: Band Neutrophils Percent 3 % (0-6); Eosinophils Absolute Manual 0.45 K/mm3 (0.02-0.5); Eosinophils Percent Manual 2 % (0-4); Lymphocytes Absolute Manual 7.26 K/mm3 (1.1-4.5); Monocytes Absolute Manual 1.81 K/mm3 (0.1-0.90); Monocytes Percent Manual 8 % (3-9); Neutrophils Absolute Manual 13.16 K/mm3 (1.7-7.2); Neutrophils Percent Manual 55 % (46-73); Platelet Estimate Adequate (Adequate); Total Cells Counted 100
[2021-08-25 00:44] LABS: Atypical Lymphocytes Present; Smudge Cells FEW
[2021-08-25] MEDS: SODIUM CHLORIDE 0.9% IV 500 ML 999 ML IV CONT (01:34)
[2021-08-25] MEDS: HYDROmorphone HCL INJ (*CRX) 1 MG/ML SYR 0.5 MG IV PUSH (01:34)
[2021-08-25 02:29] LABS: Add Urine Microscopic? YES; Appearance Urine Clear (Clear); Bilirubin Urine Negative (Negative); Blood Urine Negative (Negative); Color Urine Yellow (Yellow); Glucose Urine UA 3+ mg/dL (Negative); Ketones Urine Negative (Negative); Leukocyte Esterase Ur Negative LEU/UL (Negative); Mucus Urine Rare /lpf; Nitrate Urine Negative (Negative); Protein Urine Negative (Negative); RBC Urine 0-2 /hpf (0-2); Specific Grav Ur 1.026 (1.001-1.035); Squamous Epithelial Cell Urine Few /hpf (Few); Urobilinogen Urine Negative mg/dL (<2.0)
[2021-08-25 02:51] LABS: Lactic Acid Reflex 1.1 mmol/L (0.7-2.1)
== END 2021-08-25 03:00 | disposition home or self-care (01) ==
PROVIDERS: Emergency Provider Emergency Medicine
DX: R10.12 Left upper quadrant pain (principal); E78.5 Hyperlipidemia, unspecified; I10 Essential (primary) hypertension; E03.9 Hypothyroidism, unspecified; G62.9 Polyneuropathy, unspecified; F17.210 Nicotine dependence, cigarettes, uncomplicated; I44.0 Atrioventricular block, first degree; I44.7 Left bundle-branch block, unspecified
CPT/HCPCS: 36415; 74176; 80053; 81001; 83605; 83690; 85025; 93005; 96374; 96375; 99284; J1170; J2270; J2405; J7040

== ENCOUNTER 2021-08-25 15:50 | Emergency (ER) | payer OTHER, SELFPAY ==
--- NOTE | ~2021-08-25 | CT_ITS ---
EXAMINATION: CT abdomen pelvis wo con DATE: 08/25/2021 16:13 INDICATION: Left upper quadrant pain TECHNIQUE: Computed tomography (CT) of the abdomen and pelvis was performed without intravenous contr ast. The dose-length product (DLP) was 234.79 mGy-cm. Automated exposure control and iterative recons truction technique were employed. COMPARISON: 04/30/2020 and 0015 hours today FINDINGS: A stable 4 mm nodule of the right lower lobe is consistent with old granulomatous disease. There is moderate emphysema of the visualized lung bases. The heart size is normal. Within the limita tions of noncontrast examination, the liver, spleen, pancreas, gallbladder, and adrenal glands are no rmal. The right kidney is unremarkable. There is a 2.3 cm cyst of the left kidney. No pathologically enlarged abdominal or pelvic lymph nodes are identified. There is no free intraperitoneal gas or evid ence of bowel obstruction. There is a moderate volume of stool in the ascending colon. There is a sma ll amount of formed stool in the nondistended terminal ileum, consistent with slow transit. There is severe lumbar spondylosis at L4-5. A fat-containing umbilical hernia is noted. IMPRESSION: 1. No CT correlate for the patient's symptoms. Reviewed, dictated and finalized at location F. MAKER
[2021-08-25 15:52] VITALS: BP 111/74; PULSE 85; RESP 20; TEMP 36.8; O2SAT 100
--- NOTE | 2021-08-25 16:15 | ED.ABDPAIN ---
HPI - Abdominal Pain General Chief Complaint: Abdominal Pain Stated Complaint: LUQ pain Time Seen by Provider: 08/25/21 15:55 Source: patient Mode of arrival: ambulatory Limitations: no limitations History of Present Illness HPI narrative: Patient is a 56-year-old female complaining of upper abdominal pain, 10 out of 10, dull, aching, nonradiating started 3 days ago. Patient was seen here early this morning for the same complaint, had labs and CT scan of her abdomen pelvis done, showed enteritis versus ileus, was discharged home. Patient also had an ultrasound 2 weeks ago and it was normal. Patient states that she continued to have pain and was never told of her results. Patient denies any chest pain, shortness of breath, nausea, vomiting, diarrhea, fever or chills. Related Data Home Medications Medication Instructions Recorded Confirmed albuterol sulfate 2.5 mg CONTINUOUS NEBULIZATION Q6H 08/10/21 08/25/21 PRN spironolactone [Aldactone] 25 mg PO DAILY 08/25/21 Allergies Allergy/AdvReac Type Severity Reaction Status Date / Time codeine Allergy Mild Nausea and Verified 08/10/21 15:43 Vomiting Review of Systems Review of Systems: All systems reviewed & are unremarkable except as noted in HPI and below Constitutional: Constitutional: Denies body ache(s), Denies chills, Denies excessive sweating, Denies fatigue, Denies fever(s), Denies headache(s), Denies lethargy, Denies malaise, Denies weakness and Denies weight loss Eyes: Eyes: Denies blurry vision, Denies change in vision and Denies loss of vision ENT: Denies dizziness, Denies ear discharge, Denies headache(s), Denies lip swelling, Denies epistaxis, Denies nasal congestion, Denies neck pain, Denies throat swelling and Denies tongue swelling Cardiovascular: Cardiovascular: Denies chest pain, Denies chest pain at rest, Denies chest pain with activity, Denies diaphoresis, Denies rapid heart rate, Denies edema, Denies irregular heart rhythm, Denies lightheadedness, Denies palpitations, Denies dyspnea and Denies dyspnea on exertion Respiratory: Respiratory: Denies chest congestion, Denies cough, Denies hemoptysis, Denies dyspnea and Denies dyspnea on exertion Gastrointestinal: Gastrointestinal: Denies melena, Denies hematochezia, Denies diarrhea, Denies nausea, Denies vomiting and Denies hematemesis Musculoskeletal: Musculoskeletal: Denies abnormal gait, Denies deformity, Denies joint swelling, Denies limited range of motion, Denies neck pain and Denies numbness Neurologic: Denies Abnormal speech present, Denies abnormal gait, Denies confusion, Denies dizziness, Denies headache(s), Denies focal weakness, Denies loss of vision, Denies numbness, Denies Other visual disturbances, Denies Sensory deficit (Neuro) and Denies weakness Psychiatric: Psychiatric: Denies confusion, Denies depression, Denies auditory hallucinations, Denies homicidal ideation and Denies suicidal ideation Endocrine: Endocrine: Denies cold intolerance, Denies excessive sweating, Denies fatigue, Denies heat intolerance and Denies palpitations Hematologic/Lymphatic: Hematologic/Lymphatic: Denies easy bleeding and Denies easy bruising Allergic/Immunologic: Allergic/Immunologic: Denies lip swelling, Denies throat swelling and Denies tongue swelling PMF Past Medical History Medical History Anxiety Degenerative disc disease Depression Hyperlipidemia No longer on medication Hypertension No longer on medication Hypothyroidism No longer on medication Left bundle branch block On EKG tracings as far back as April 2020. Peripheral neuropathy Small lymphocytic lymphoma Tobacco abuse Surgical History Surgical History History of 2 sections History of breast biopsy History of endometrial ablation Family History Family History (Reviewed 08/25/21 @ 16:20 by Lars Mckeon
[2021-08-25 16:25] VITALS: BP 112/74; PULSE 83; RESP 16; O2SAT 98
[2021-08-25 16:30] LABS: Basophils Percent Auto 0.2 % (0.2-1.2); Hematocrit 47.3 % (37.0-47.0); Hemoglobin 16.2 g/dL (12.0-15.0); Immature Granulocyte Absolute 0.09 K/mm3 (0.00-0.031); Immature Granulocyte Percent A 0.5 % (0-0.5); Lymphocytes Absolute Auto 4.74 K/mm3 (0.9-3.2); Lymphocytes Percent Auto 23.9 % (18.3-44.2); Mean Corpuscular HGB Conc 34.2 g/dl (32-36); Mean Corpuscular Hemoglobin 29.7 pg (26-34); Mean Corpuscular Volume 86.6 fl (80-100); Monocytes Absolute Auto 0.6 K/mm3 (0.1-0.6); Neutrophils Absolute Auto 14.4 K/mm3 (1.3-6.7); Neutrophils Percent Auto 72.4 % (45.5-73.1); Platelet Count Result 365 k/mm3 (150-375); Red Blood Count 5.46 M/mm3 (4.2-5.4); Red Cell Distribution Width 14.6 % (11.5-14.5); White Blood Count 19.8 K/mm3 (4.5-10.0)
[2021-08-25] MEDS: MORPHINE SULFATE (*CRX) 2 MG/ML INJ IV PUSH (16:31)
[2021-08-25] MEDS: PANTOPRAZOLE SODIUM IV 40 MG VIAL IV PUSH (16:32)
[2021-08-25] MEDS: PROMETHAZINE HCL 25 MG/ML AMPUL 12.5 MG IV PUSH (16:32)
[2021-08-25 16:40] LABS: Lactic Acid Reflex 2.8 mmol/L (0.7-2.1)
[2021-08-25 16:48] LABS: Alanine Aminotransferase 29 U/L (4-35); Albumin Level 4.9 g/dL (3.5-5.1); Alkaline Phosphatase 123 U/L (38-126); Anion Gap 18 mmol/L (8-16); Aspartate Amino Transferase 62 U/L (14-36); Bilirubin,Total 1.1 mg/dL (0.2-1.3); Blood Urea Nitrogen 19 mg/dL (7-17); Calcium 10.5 mg/dL (8.4-10.2); Carbon Dioxide 21 mmol/L (22-30); Chloride 99 mmol/L (98-107); Estimated CRCL calculation 53 ml/min; Estimated Glomerular Filt Rate > 60; Glucose 185 mg/dL (65-110); Lipase 72 U/L (23-300); Potassium 4.1 mmol/L (3.4-5.0); Sodium 138 mmol/L (137-145)
[2021-08-25 17:01] VITALS: TEMP 36.8
--- NOTE | 2021-08-25 17:02 | PC.NURSE ---
Normal saline 50ml bag used for Phenergan administration
[2021-08-25 17:04] LABS: Platelet Estimate Adequate (Adequate)
[2021-08-25 17:05] LABS: Atypical Lymphocytes Present
--- NOTE | 2021-08-25 17:54 | PC.NURSE ---
Patient states she does not wish to be admitted to the hospital.
[2021-08-25 19:28] LABS: Reflex Lactic Acid Yes or No Add Lactic
== END 2021-08-25 18:10 | disposition home or self-care (01) ==
PROVIDERS: Emergency Provider Emergency Medicine
DX: R10.10 Upper abdominal pain, unspecified (principal); E78.5 Hyperlipidemia, unspecified; I10 Essential (primary) hypertension; E03.9 Hypothyroidism, unspecified; G62.9 Polyneuropathy, unspecified; Z85.72 Personal history of non-Hodgkin lymphomas; F17.210 Nicotine dependence, cigarettes, uncomplicated; Z79.84 Long term (current) use of oral hypoglycemic drugs
CPT/HCPCS: 36415; 74176; 80053; 83605; 83690; 85025; 96374; 96375; 99284; C9113; J2270; J2550